=== PATIENT | female | born 1985 | race Caucasian/White ===

== ENCOUNTER 2018-03-29 15:16 | Outpatient (CLI) | payer MEDICAID, SELFPAY ==
--- NOTE | 2018-03-29 14:46 | DI.RAD_ITS ---
SYMPTOM/DIAGNOSIS: W/P FHR AT FIRST OB, VIABILITY OB ULTRASOUND: Comparison is made with 09 February 2018. There is a single active intrauterine gestation in variable position. The biometric measurements correspond to 14 weeks 2 days and an EDC of 25 September 2018. It is consistent with dating from previous ultrasound. Cardiac activity is demonstrated at 157 BPM. The amount of amniotic fluid appears normal. The ovaries appear normal. IMPRESSION: Living intrauterine gestation of 14 weeks 2 days. Many abnormalities cannot be diagnosed. A normal exam does not exclude a congenital anomaly. Radiology No. [id number] LMP: Exam Date: 03/29/18 [facility] wks days on EDC ([facility]) 09/24/18 Confirmed: HISTORY: UNABLE TO OBTAIN PHT AT APPOINTMENT ---- PREDICTED GESTATIONAL AGE NUMBER 14 +3 weeks with a range of 13 +3 week to 15 +3 weeks. 1 Determined by_XX__1STUS___LMP___HISTORY Info. pertaining to fetus # PLACENTA PRESENTATION Grade Cephalic___ Anterior___Posterior___ Breech____ Right Left Transverse(head right___ Fundal___Low-lying___Previa___ Transverse(head left___ Varying___XX___ BIOMETRY AMNIOTIC FLUID BPD: 24 mm 14 +1 weeks Normal HC: 91 mm 14 +1 weeks AC: 82 mm 14 +4 weeks FL: 14 mm 14 - weeks AMNIOTIC FLUID INDEX >26 WK CRL: mm weeks Cisterna Magna: mm CI: 85 RUQ: LUQ Cerebellum: cm EFW: grams Percentile RLQ: LLQ Total: cms Composite AGE= 14 +2 wks EDC by US__09/25/18 BIOPHYSICAL PROFILE ANATOMY IDENTIFIED SCORE 0/2 Heart: 4-Chamber___Rate:BPM__157 BPM___ LVOT: RVOT: Amniotic Fluid(>2cms)____ Stomach: Kidneys: Respirations (>30 secs) Bladder: Post. Fossa: Body Flex/Extension 3 vessel cord: Ventricles: cord insertion: Lips:____ Extremity Flex/Extension spinal morphology: Nose: Total Score= Palate: NS=not seen
== END 2018-03-29 15:36 ==
PROVIDERS: PCP Neuromusculoskeletal Medicine & OMM; Visit Provider Advanced Practice Midwife
DX: Z34.92 Encounter for supervision of normal pregnancy, unspecified, second trimester (principal); Z36.2 Encounter for other antenatal screening follow-up
CPT/HCPCS: 87491; 87591; 88142; 76801

== ENCOUNTER 2018-03-29 16:12 | Outpatient (REF) | payer MEDICAID, SELFPAY ==
--- NOTE | 2018-03-29 14:20 | PAPFT_PTH ---
PATIENT: Deidre Harkins LOC: [facility] U#:[id number] AGE/SX: 33/F ROOM: RE03/29/[address]: Art Michael RN : 1985 BED: DIS: 03/29/2018 SPEC #: [id number] RECD: 03/29/18 18:51 STATUS: TEJAL REQ #: [id number] GWEN: 03/29/18 14:[address]: Art Michael DEPT: [facility] Cytology RECD BY: Kathy Goode ENTERED: 03/29/18 18:51 SP TYPE: PAPFT OTHR DR: Ashu Hills Tissues: 1 - CX/ENDOCX FOR PAP SMEARS Procedures: PAP THIN PREP/UVM Screening HPV DNA PROBE Comments: [id number]
== END 2018-03-29 16:32 ==
LOC: LBN 16:12
PROVIDERS: PCP Neuromusculoskeletal Medicine & OMM; Visit Provider Advanced Practice Midwife
DX: Z12.4 Encounter for screening for malignant neoplasm of cervix (principal)
CPT/HCPCS: 88142; 87624

== ENCOUNTER 2018-03-29 16:56 | Outpatient (REF) | payer MEDICAID, SELFPAY ==
[2018-03-31 14:19] LABS: Chlamydia Result Negative; GC Result Negative; Specimen Description CERVICAL
== END 2018-03-29 17:16 ==
LOC: LBN 16:56
PROVIDERS: PCP Neuromusculoskeletal Medicine & OMM; Visit Provider Advanced Practice Midwife
DX: Z34.91 Encounter for supervision of normal pregnancy, unspecified, first trimester (principal); Z11.3 Encounter for screening for infections with a predominantly sexual mode of transmission; Z12.4 Encounter for screening for malignant neoplasm of cervix
CPT/HCPCS: 87491; 87591; 88142; 76801

== ENCOUNTER 2018-04-09 13:13 | Outpatient (CLI) | payer MEDICAID, SELFPAY ==
--- NOTE | 2018-04-09 11:38 | DI.US_ITS ---
SYMPTOMS/DIAGNOSIS: BLEEDING, ? RETROPLACENTAL CLOT OB ULTRASOUND: Routine examination. There is a single living intrauterine gestation. The estimated sonographic age is 15 weeks 6 days. The fetus is in the breech position. The heart rate is 153 bpm. Estimated weight is 133 grams. The placenta is posterior without evidence of previa. No evidence of a placental abruption is seen. The amniotic fluid is within normal limits. IMPRESSION: Single living intrauterine gestation. Estimated sonographic age is 15 weeks 6 days. Many abnormalities cannot be diagnosed. A normal exam does not exclude a congenital anomaly. Radiology No. [id number] LMP: Exam Date: [facility] wks days on EDC ([facility]) 09/24/18 Confirmed: HISTORY: bleeding, ? retroplacental clot ---- PREDICTED GESTATIONAL AGE NUMBER 16 weeks with a range of 15 weeks to 17 weeks. 1 Determined by 1STUS X LMP___HISTORY Info. pertaining to fetus # PLACENTA PRESENTATION Grade 0-I Cephalic___ Anterior___Posterior X Breech X Right Left Transverse(head right___ Fundal___Low-lying___Previa___ Transverse(head left___ Varying BIOMETRY AMNIOTIC FLUID BPD: 32 mm 15+6 weeks Normal HC: 118 mm 15+6 weeks AC: 99 mm 16 weeks FL: 18 mm 15+3 weeks AMNIOTIC FLUID INDEX >26 WK CRL: mm weeks Cisterna Magna: mm CI: RUQ: LUQ Cerebellum: cm EFW: 133 grams Percentile 24% RLQ: LLQ Total: cms Composite AGE= 15+6 wks EDC by US 09/25/18 BIOPHYSICAL PROFILE ANATOMY IDENTIFIED SCORE 0/2 Heart: 4-Chamber___Rate: 153 BPM LVOT: RVOT: Amniotic Fluid(>2cms)____ Stomach: Kidneys: Respirations (>30 secs) Bladder: Post. Fossa: Body Flex/Extension 3 vessel cord: Ventricles: cord insertion: Lips:____ Extremity Flex/Extension spinal morphology: Nose: Total Score= Palate: NS=not seen
[2018-04-09 13:21] LABS: Abs Immature Grans 0.01 k/cumm (0.0-0.09); Absolute Basophil Count 0.01 k/cumm (0.0-0.2); Absolute Lymphocyte Count 1.92 k/cumm (1.2-3.4); Absolute Monocyte Count 0.48 k/cumm (0.11-0.7); Absolute Neutrophil Count 5.25 k/cumm (1.2-6.7); Basophils % 0.1; Eosinophils % 1.3; HCT 33.5 % (36.0-46.0); HGB 11.2 g/dL (12.0-15.5); Immature Grans % 0.1; Lymphocytes % 24.7; Mean Corp. HGB Concentration 33.4 g/dL (32.0-36.0); Mean Corpuscular Volume 89.8 fL (80-95); Mean Platelet Volume 10.1 fL (8.0-11.0); Monocytes % 6.2; Neutrophils % 67.6; Platelet Count 258 x1000/uL (130-400); RBC 3.73 m/cumm (4.00-5.20); RBC Distribution Width 12.2 % (11.7-14.6); White Blood Cell Count 7.77 k/cumm (4.4-10.8)
[2018-04-09 14:16] LABS: TSH (W/Ref FT4) 0.87 uIU/mL (0.358-3.74)
[2018-04-12 12:54] LABS: Rubella IgG Ab (UVM) Negative
[2018-04-12 12:58] LABS: Varicella IgG Antibody Positive
[2018-04-12 13:10] LABS: HIV-1/2 Ag & Ab Screen Negative (NEGAT)
[2018-04-12 13:22] LABS: Hepatitis B Surface Ag Negative (NEGAT)
[2018-04-12 13:25] LABS: Hepatitis C Ab w Rflx HCV PCR Negative (NEGAT)
[2018-04-12 14:09] LABS: Syphilis Serology (RPR) Negative (Negative)
== END 2018-04-09 13:33 ==
PROVIDERS: PCP Neuromusculoskeletal Medicine & OMM; Visit Provider Advanced Practice Midwife
DX: Z34.91 Encounter for supervision of normal pregnancy, unspecified, first trimester (principal); N93.0 Postcoital and contact bleeding; O09.892 Supervision of other high risk pregnancies, second trimester; Z67.91 Unspecified blood type, Rh negative
CPT/HCPCS: 36415; 80055; 86787; 86850; 86900; 86901; 90384; 76801; 84443

== ENCOUNTER 2018-04-27 14:24 | Outpatient (CLI) | payer MEDICAID, SELFPAY ==
--- NOTE | 2018-04-27 12:57 | DI.US_ITS ---
SYMPTOMS/DIAGNOSIS: SUPERVISION OF NORMAL , Z34.90 OBSTETRICAL ULTRASOUND: Many abnormalities cannot be diagnosed. A normal exam does not exclude a congenital anomaly. Radiology No. [id number] LMP: Exam Date: 04/27/18 [facility] wks days on EDC ([facility]) 09/24/18 Confirmed: HISTORY: ---- PREDICTED GESTATIONAL AGE NUMBER 18+4 weeks with a range of 17+4 weeks to 19+4 weeks. 1 Determined by___1STUS___LMP___HISTORY PLACENTA PRESENTATION Grade I Cephalic___ Anterior___Posterior_X__ Breech____ Right Left Transverse(head right___ Fundal___Low-lying___Previa___ Transverse(head left___ Varying___X___ BIOMETRY AMNIOTIC FLUID BPD: 41 mm 18+4 weeks Normal HC: 155 mm 18+3 weeks Oligo Polyhydramnios AC: 135 mm 18+6 weeks FL: 28 mm 18+3 weeks AMNIOTIC FLUID INDEX >26 WK CRL: mm weeks Cisterna Magna: 3 mm CI: 85 RUQ: LUQ Cerebellum: 1.7 cm EFW: 251 grams Percentile RLQ: LLQ Total: cms Composite AGE= 18+4 wks EDC by US: 09/24/18 BIOPHYSICAL PROFILE ANATOMY IDENTIFIED SCORE 0/2 Heart: 4-Chamber_X__Rate:BPM 153 LVOT: X RVOT:___X Amniotic Fluid(>2cms)____ Stomach:___X____ Kidneys:___X____ Respirations (>30 secs) Bladder:____X____ Post. Fossa:___X Body Flex/Extension 3-vessel cord:___X____Ventricles:___X Cord insertion:__X___ Lips:_X___ Extremity Flex/Extension Spinal morphology:__X Nose:_X___ Total Score= Palate:___X____ NS=not seen COMMENTS: There is a single living intrauterine gestation. Estimated sonographic age is 18 weeks 4 days. No or placental abnormalities are identified. The fetus was in varying positions during the examination. heart rate is 153 beats per minute. Placenta is posterior without evidence of previa. IMPRESSION: Single living intrauterine gestation. Estimated sonographic age is 18 weeks 4 days.
== END 2018-04-27 14:44 ==
PROVIDERS: PCP Neuromusculoskeletal Medicine & OMM; Visit Provider Advanced Practice Midwife
DX: Z34.92 Encounter for supervision of normal pregnancy, unspecified, second trimester (principal)
CPT/HCPCS: 76805

== ENCOUNTER 2018-05-24 15:53 | Outpatient (REF) | payer MEDICAID, SELFPAY ==
[2018-05-24 18:05] LABS: *AMPHETAMINES SCREEN URINE Negative (Negative); *BARBITURATES SCREEN URINE Negative (Negative); *BENZODIAZEPINES SCREEN URINE Negative (Negative); Cannabinoids THC Negative (Negative); Cocaine Screen,Urine Negative (Negative); METHADONE URINE SCREEN Negative (Negative); OPIATES URINE SCREEN Negative (Negative)
[2018-05-24 18:06] LABS: Tricyclic Antidepressants Negative (Negative)
== END 2018-05-24 16:13 ==
LOC: LBN 15:53
PROVIDERS: PCP Neuromusculoskeletal Medicine & OMM; Visit Provider Nurse Practitioner
DX: Z34.91 Encounter for supervision of normal pregnancy, unspecified, first trimester (principal)
CPT/HCPCS: 80307; 87077; 87086; 87186

== ENCOUNTER 2018-07-19 12:13 | Outpatient (CLI) | payer MEDICAID, SELFPAY | END 2018-07-19 21:00 | LOC: BCD 14:34 → OBS 16:24 → BCD 20:28 | PROVIDERS: PCP Neuromusculoskeletal Medicine & OMM; Visit Provider Advanced Practice Midwife | DX: O9A.213 Injury, poisoning and certain other consequences of external causes complicating pregnancy, third trimester (principal); W19.XXXA Unspecified fall, initial encounter; Z3A.28 28 weeks gestation of pregnancy | CPT/HCPCS: 86850; 90384; 59025 ==

== ENCOUNTER 2018-07-21 14:31 | Outpatient (CLI) | payer MEDICAID, SELFPAY ==
--- NOTE | 2018-07-21 13:52 | DI.US_ITS ---
SYMPTOMS/DIAGNOSIS: S/P FALL 3 DAYS AGO, SPOTTING AFTER BUT NOT LONGER SPOTTING, CHECK PLACENTA OB ULTRASOUND: Many abnormalities cannot be diagnosed. A normal exam does not exclude a congenital anomaly. Radiology No. [id number] LMP: Exam Date: 07/21/18 [facility] wks days on EDC ([facility]) Confirmed: HISTORY: PREDICTED GESTATIONAL AGE NUMBER weeks with a range of week to weeks. 1 Determined by___1STUS___LMP___HISTORY PLACENTA PRESENTATION Grade I-II Cephalic_X__ Anterior___Posterior_X__ Breech____ Right Left Transverse(head right___ Fundal_X__Low-lying___Previa___ Transverse(head left___ Varying BIOMETRY AMNIOTIC FLUID BPD: mm weeks Normal HC: mm weeks AC: mm weeks FL: mm weeks AMNIOTIC FLUID INDEX >26 WK CRL: mm weeks Cisterna Magna: mm CI: RUQ: LUQ Cerebellum: cm EFW: grams Percentile RLQ: LLQ Total: cms Composite AGE= wks EDC by US BIOPHYSICAL PROFILE ANATOMY IDENTIFIED SCORE 0/2 Heart: 4-Chamber_X__Rate:BPM 117 LVOT: RVOT: Amniotic Fluid(>2cms)____ Stomach: Kidneys: Respirations (>30 secs) Bladder:___X Post. Fossa: Body Flex/Extension 3-vessel cord:___X____Ventricles: cord insertion: Lips:____ Extremity Flex/Extension spinal morphology: Nose: Total Score= Palate: NS=not seen COMMENTS: The fetus is in cephalic position. The cervix appears intact. The placenta is posterior. There is no evidence of placenta previa or abruption. Amount of amniotic fluid appears normal. cardiac activity is identified at 117 beats per minute. IMPRESSION: Posterior placenta which appears intact.
[2018-07-21 15:04] LABS: HCT 32.9 % (36.0-46.0); HGB 10.9 g/dL (12.0-15.5); Mean Corp. HGB Concentration 33.1 g/dL (32.0-36.0); Mean Corpuscular Hemoglobin 29.2 pg (27.0-33.0); Mean Corpuscular Volume 88.2 fL (80-95); Mean Platelet Volume 10.1 fL (8.0-11.0); Platelet Count 248 x1000/uL (130-400); RBC 3.73 m/cumm (4.00-5.20); RBC Distribution Width 13.3 % (11.7-14.6); White Blood Cell Count 9.44 k/cumm (4.4-10.8)
[2018-07-21 15:34] LABS: Glucose,1 Hr (Glucola) 70 mg/dL (80-140)
== END 2018-07-21 14:51 ==
PROVIDERS: Advanced Practice Midwife; PCP Neuromusculoskeletal Medicine & OMM; Visit Provider Advanced Practice Midwife
DX: O26.853 Spotting complicating pregnancy, third trimester (principal); Z91.81 History of falling; Z34.93 Encounter for supervision of normal pregnancy, unspecified, third trimester
CPT/HCPCS: 36415; 76815; 82950; 85027

== ENCOUNTER 2018-08-31 17:01 | Outpatient (REF) | payer MEDICAID, SELFPAY | END 2018-08-31 17:21 | LOC: LBN 17:01 | PROVIDERS: PCP Neuromusculoskeletal Medicine & OMM; Visit Provider Advanced Practice Midwife | DX: Z34.93 Encounter for supervision of normal pregnancy, unspecified, third trimester (principal); Z36.85 Encounter for antenatal screening for Streptococcus B | CPT/HCPCS: 87081 ==

== ENCOUNTER 2018-09-15 11:33 | Outpatient (CLI) | payer MEDICAID, SELFPAY ==
--- NOTE | 2018-09-15 11:30 | DI.US_ITS ---
SYMPTOMS/DIAGNOSIS: SIZE LESS THAN DATES, FUNDAL HEIGHT 34 CM, EGA 37 WKS, Z34.90 OB ULTRASOUND: There is a single living intrauterine gestation. The fetus is in the cephalic presentation. heart rate is 148 bpm. The estimated weight is 3328 grams which is the 48th percentile. anatomic evaluation was not performed at this time. The amniotic fluid index is 15.6 cm. Visually the amniotic fluid appears within normal limits. The placenta is posterior without evidence of previa. IMPRESSION: Single living intrauterine gestation. Estimated sonographic age is 38 weeks. Many abnormalities cannot be diagnosed. A normal exam does not exclude a congenital anomaly. Radiology No. [id number] LMP: Exam Date: 09/15/18 [facility] wks days on [facility] ([facility]) Confirmed: HISTORY: S < D x 3 wks PREDICTED GESTATIONAL AGE NUMBER 38+4 weeks with a range of 37+4 weeks to 39+4 weeks. 1 Determined by 1STUS X LMP___ HISTORY X Info. pertaining to fetus # PLACENTA PRESENTATION Grade II Cephalic X Anterior___Posterior X Breech____ Right Left Transverse(head right___ Fundal___Low-lying___Previa___ Transverse(head left___ Varying BIOMETRY AMNIOTIC FLUID BPD: 94 mm 38+1 weeks Normal HC: 333 mm 38 weeks AC: 338 mm 37+5 weeks FL: 74 mm 37+6 weeks AMNIOTIC FLUID INDEX >26 WK CRL: mm weeks Cisterna Magna: mm CI: 83 RUQ: 3.5 LUQ: 3.9 Cerebellum: cm EFW: 3328 grams Percentile 48% RLQ: 3.4 LLQ: 4.7 7# 5oz Total: 15.6 cms Composite AGE= 38 wks EDC by US 09/29/18 BIOPHYSICAL PROFILE ANATOMY IDENTIFIED SCORE 0/2 Heart: 4-Chamber___Rate: 148 BPM LVOT: RVOT: Amniotic Fluid(>2cms)____ Stomach: Kidneys: Respirations (>30 secs) Bladder: Post. Fossa: Body Flex/Extension 3 vessel cord: Ventricles: cord insertion: Lips:____ Extremity Flex/Extension spinal morphology: Nose: Total Score= Palate: NS=not seen
== END 2018-09-15 11:53 ==
PROVIDERS: PCP Neuromusculoskeletal Medicine & OMM; Visit Provider Obstetrics & Gynecology Gynecology
DX: O26.843 Uterine size-date discrepancy, third trimester (principal); Z34.93 Encounter for supervision of normal pregnancy, unspecified, third trimester
CPT/HCPCS: 76816

== ENCOUNTER 2018-09-26 08:05 | Inpatient (IN) | payer MEDICAID, SELFPAY ==
[2018-09-26] MEDS: Oxytocin 10 UNITS/ML VIAL IM (08:30)
[2018-09-26 09:37] LABS: HCT 37.4 % (36.0-46.0); HGB 12.9 g/dL (12.0-15.5); Mean Corp. HGB Concentration 34.5 g/dL (32.0-36.0); Mean Corpuscular Hemoglobin 29.4 pg (27.0-33.0); Mean Corpuscular Volume 85.2 fL (80-95); Mean Platelet Volume 10.7 fL (8.0-11.0); Platelet Count 199 x1000/uL (130-400); RBC 4.39 m/cumm (4.00-5.20); RBC Distribution Width 14.5 % (11.7-14.6); White Blood Cell Count 14.92 k/cumm (4.4-10.8)
[2018-09-26] MEDS: Ibuprofen 600 MG TAB PO ×2 (11:12→21:25)
[2018-09-26] MEDS: Buprenorphine/Naloxone 8 mg/2 mg FILM 1 EACH SL (11:13)
[2018-09-26] MEDS: Buprenorphine/Naloxone 12 mg/3 mg FILM 1 EACH SL (11:13)
[2018-09-26] MEDS: Gabapentin 400 MG CAP PO ×2 (17:48→23:00)
[2018-09-27 07:31] LABS: HCT 31.9 % (36.0-46.0); HGB 10.6 g/dL (12.0-15.5); Mean Corp. HGB Concentration 33.2 g/dL (32.0-36.0); Mean Corpuscular Volume 87.4 fL (80-95); Platelet Count 162 x1000/uL (130-400); RBC 3.65 m/cumm (4.00-5.20); RBC Distribution Width 14.7 % (11.7-14.6); White Blood Cell Count 10.92 k/cumm (4.4-10.8)
[2018-09-27] MEDS: Gabapentin 400 MG CAP PO ×3 (08:14→20:27)
[2018-09-27] MEDS: Prenatal Multivitamin w/CA,FE TAB 1 TAB PO (08:14)
[2018-09-27] MEDS: Buprenorphine/Naloxone 8 mg/2 mg FILM 1 EACH SL (08:15)
[2018-09-27] MEDS: Buprenorphine/Naloxone 12 mg/3 mg FILM 1 EACH SL (08:15)
[2018-09-27] MEDS: Acetaminophen 325 MG TAB 650 MG PO ×2 (15:01→20:27)
[2018-09-27 16:15] LABS: HCT 31.2 % (36.0-46.0); HGB 10.3 g/dL (12.0-15.5); Mean Corpuscular Volume 87.9 fL (80-95); Mean Platelet Volume 10.7 fL (8.0-11.0); Platelet Count 149 x1000/uL (130-400); RBC 3.55 m/cumm (4.00-5.20); RBC Distribution Width 14.8 % (11.7-14.6); White Blood Cell Count 12.09 k/cumm (4.4-10.8)
[2018-09-27] MEDS: Ibuprofen 600 MG TAB PO (20:27)
[2018-09-28] MEDS: Acetaminophen 325 MG TAB 650 MG PO (06:36)
[2018-09-28] MEDS: Ibuprofen 600 MG TAB PO (06:37)
[2018-09-28] MEDS: Prenatal Multivitamin w/CA,FE TAB 1 TAB PO (08:10)
[2018-09-28] MEDS: Buprenorphine/Naloxone 12 mg/3 mg FILM 1 EACH SL (08:10)
[2018-09-28] MEDS: Gabapentin 400 MG CAP PO (08:10)
[2018-09-28] MEDS: Buprenorphine/Naloxone 8 mg/2 mg FILM 1 EACH SL (10:38)
== END 2018-09-28 12:17 | disposition home or self-care (01) | DRG 806 ==
PROVIDERS: Admitting Provider Advanced Practice Midwife; PCP Neuromusculoskeletal Medicine & OMM; Visit Provider Advanced Practice Midwife
DX: O48.0 Post-term pregnancy (principal); O99.324 Drug use complicating childbirth; Z37.0 Single live birth; F11.20 Opioid dependence, uncomplicated; O69.1XX0 Labor and delivery complicated by cord around neck, with compression, not applicable or unspecified; O92.03 Retracted nipple associated with lactation; O34.211 Maternal care for low transverse scar from previous cesarean delivery; O26.893 Other specified pregnancy related conditions, third trimester; O99.02 Anemia complicating childbirth; O99.344 Other mental disorders complicating childbirth; Z3A.40 40 weeks gestation of pregnancy; F41.8 Other specified anxiety disorders; D64.9 Anemia, unspecified
CPT/HCPCS: 36415; 85027; 85461; 86850; 86900; 86901; 90384; J2790

== ENCOUNTER 2018-11-25 11:12 | Emergency (ER) | payer MEDICAID, SELFPAY ==
[2018-11-25 11:51] VITALS: BP 132/70; PULSE 100; RESP 18; TEMP 36.7; O2SAT 96
[2018-11-25 12:29] LABS: Bilirubin Negative (Negative); Blood Negative (Negative); Clarity Clear; Glucose Negative (Negative); Ketones Negative (Negative); Leukocyte Esterase Negative (Negative); Nitrite Negative (Negative); Specific Gravity 1.015 (1.005-1.025); Urobilinogen 0.2 EU/dL (Up TO 0.2); pH 7.5 (5-8)
[2018-11-25 12:51] LABS: Absolute Basophil Count 0.01 k/cumm (0.0-0.2); Absolute Eosinophil Count 0.11 k/cumm (0.0-0.7); Absolute Lymphocyte Count 2.76 k/cumm (1.2-3.4); Absolute Monocyte Count 0.66 k/cumm (0.11-0.7); Absolute Neutrophil Count 4.45 k/cumm (1.2-6.7); Basophils % 0.1; Eosinophils % 1.4; HCT 39.5 % (36.0-46.0); Lymphocytes % 34.5; Mean Corp. HGB Concentration 32.9 g/dL (32.0-36.0); Mean Corpuscular Volume 85.1 fL (80-95); Mean Platelet Volume 9.2 fL (8.0-11.0); Monocytes % 8.3; Neutrophils % 55.7; Platelet Count 372 x1000/uL (130-400); RBC 4.64 m/cumm (4.00-5.20); RBC Distribution Width 14.2 % (11.7-14.6); White Blood Cell Count 7.99 k/cumm (4.4-10.8)
[2018-11-25 13:04] LABS: ALT 45 U/L (12-78); AST 16 U/L (15-37); Albumin 3.8 g/dL (3.4-5.0); Alkaline Phosphatase 95 U/L (46-116); Anion Gap 8.1 mmol/L (3-11); BUN 7 mg/dL (7-18); Bilirubin, Total 0.5 mg/dL (0.2-1.0); CO2 27.9 mmol/L (21.0-32.0); CREATININE 0.46 mg/dL (0.55-1.02); Calcium 9.4 mg/dL (8.5-10.1); Chloride 101 mmol/L (98-107); Glucose 103 mg/dL (70-100); Sodium 137 mmol/L (136-145); Total Protein 7.8 g/dL (6.4-8.2)
--- NOTE | 2018-11-25 14:22 | ED.GENADUL_ITS ---
Discharge Plan Disposition Patient Disposition: HOME Condition: Stable Discharge Details Chief Complaint: Cellulitis Clinical Impression: Anxiety, Pain of left breast Primary Care Provider: Ashu Hills ED Provider: Frantz Mast Home Meds and New Rx's Prescriptions: Continued folic acid 1 mg tablet 1 mg PO DAILY RF: 0 buprenorphine HCl 8 mg tablet, sublingual 20 mg SL DAILY RF: 0 PNV cmb#95-ferrous fumarate-FA [] 1 EACH tablet 1 ea PO RF: 0 gabapentin 400 mg capsule 400 mg PO QID Qty: 16 RF: 0 No Action metoclopramide HCl [Reglan] 10 mg tablet 10 mg PO Q6H Qty: 60 RF: 0 Discharge Instructions Instructions: and Nipple Soreness (ED), and Breast Engorgement (ED), Anxiety (ED) Additional Instructions: [facility] with [facility] for further assessment of your condition. Feel free to return the emergency department at any point for any further concerns or needs you may have or any worsening of your condition. You may continue to use [id number] acetaminophen as needed for discomfort and take your normally prescribed medications. Referrals: [facility] [Provider Group] - 11/26/18 10:40 am Discharge Data Discharge Date/Time-TO BE ENTERED AT DEPARTURE: 11/25/18 14:35 Medical Decision Making Patient presenting the emergency department for chief complaint of left breast pain. Patient states this is been going on for last 2 weeks after she accidentally left her breast pump on her breast for 3 hours. She states that there was what she thought was breast tissue noted in the mechanisms of the container. Also since her child is both been born she has had night sweats, back pain, and some sore throat. Physical exam shows a very small area of erythema to the left breast that is consistent with a potential clogged duct but no palpable abscess, no induration, no discharge, no signs of mastitis. Of note is right nipple is inverted which she states is normal for her. Examination of the back and lower extremities shows no acute findings, throat is mildly erythematous with exudates. Plan on checking labs, rapid strep test, and consulting with security sales consultant. Review of labs show normal CBC, nondiagnostic CMP, contaminated urine and negative strep test. media sales consultant is out of the office so I did speak with Dr. Medley AGRICULTURAL AND FORESTRY SUPERVISOR on-call. She recommended patient have close follow-up with them and was able to arrange the patient to be seen in the office tomorrow. Patient was agreeable to this. Otherwise I see no signs of emergent medical condition at this time but return precautions were discussed with patient. After discussion of diagnosis and plan of care patient has no further needs, questions, or concerns and states clear understanding to return to the emergency department for any worsening symptoms. HPI General Mode of arrival: ambulatory . Date/Time Provider Initiated Documentation: 11/25/18 11:53 . Limitations to Documentation: no limitations . Information obtained by: patient . History of Present Illness 33 year old F presents to the emergency department with the chief complaint of Left breast disc, Patient started experiencing this week(s) (2) Related Data Home Medications Medication Instructions Recorded Confirmed PNV cmb#95-ferrous fumarate-FA 1 ea PO 01/19/18 11/26/18 [] folic acid 1 mg tablet 1 mg PO DAILY 06/22/18 11/26/18 buprenorphine HCl 8 mg sublingual 20 mg SL DAILY tab 09/15/18 11/26/18 tablet gabapentin 400 mg capsule 400 mg PO QID #16 cap 09/28/18 11/26/18 metoclopramide 10 mg tablet 10 mg PO Q6H #60 tab 11/26/18 11/26/18 Previous Rx's Medication Instructions Recorded gabapentin 400 mg capsule 400 mg PO QID #16 cap 09/28/18 metoclopramide 10 mg tablet 10 mg PO Q6H #60 tab 11/26/18 Allergies Allergy/AdvReac Type Severity Reaction Status Date / Time No Known Drug Allergies Allergy Unverified 11/26/18 11:01 General Stated Complaint: GenMedical JEROMY: 3 Review of Systems Constitutional Reports chills, Denies fever(s) and Reports night sweats ENT Denies nasal congestion, Denies neck pain and Reports sore throat Cardiovascular Denies chest pain and Denies dyspnea Respiratory Denies cough, Denies hemoptysis and Denies dyspnea Musculoskeletal Reports back pain and Denies neck pain Integumentary/Breasts Reports as per HPI, Reports breast pain, Denies erythema and Denies rash PFSH Medical History Rh negative state in antepartum period (Acute) Depression (Chronic) Anxiety (Chronic) Restless leg syndrome (Acute) 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) Surgical History section (07/14/08) Family History Father Essential hypertension Hyperlipidemia Mother Fibromyalgia Social History Smoking/Tobacco Use Status: Current every day Drug use: Never Household members: other Details: children: Jeanmarie Terrazas Orion Do you feel safe at home: Yes Do you feel safe in your relationship?: Yes Female Reproductive History Menstrual Age of Menarche: 13 Duration of menses: 3-5 days control method: none History History 7 Para Hx # Term Pregnancies 3 Multiple births 0 Hx # Pregnancies 0 Ectopic pregnancies 0 AB induced Hx Number of Living Children AB spontaneous Past Pregnancies Del. Date GA/Weeks # Outcome Route Wgt Sex Labor Lgth Anesthesia Location Prov Complic Unknown Unsuccessful Unknown Unsuccessful 07/14/08 40 No Successful EP other 07/06/13 No vaginal Male CNM 12/26/14 No Successful Female 9 hrs CNM 09/26/18 40 No Successful vaginal 3.005 kg Male Jodi Garcia CNM Delivery Date: 09/26/18 On 11/08/18 @ 14:28 Erika Morse Pecipitous delivery, Arrived in active labor, SROM clear fluid within 15 minutes of arrival and head seen on perineum. Controlled delivery with snug nuchal cord,. Delivery Date: 12/26/14 No notes to display Delivery Date: 07/06/13 On 08/31/18 @ 16:50 Radha Lamar , retained placenta - removed under anesthesia Delivery Date: 07/14/08 On 08/31/18 @ 16:47 Radha Lamar arrest of descent Delivery Date: On 08/31/18 @ 16:53 Radha Lamar SAB Delivery Date: On 08/31/18 @ 16:48 Radha Lamar SAB Exam Const General: cooperative, no acute distress and not ill appearing Orientation: alert, awake and oriented x3 HENMT Head: normal to inspection Ears: hearing grossly normal bilaterally, external ears normal and TM's normal bilaterally General nose exam: external nose normal Mouth: oral mucosae normal, lip normal, tongue normal and moist mucous membranes Throat: posterior oropharynx normal, uvula midline and abnormal tonsil bilaterally erythema and exudates Chest Breast inspection: normal inspection of the axillae and abnormal inspection of the breast (Inverted nipple of the right breast, 6 mm erythema 11 o'clock left nipple ) Breast palpation: normal palpation of the breasts, normal palpation of the axillae and no axillary lymphadenopathy Resp Effort & Inspection: normal respiratory effort, able to speak in complete sentences and no respiratory distress Auscultation: clear to auscultation bilaterally Cardio Rate: regular rate Rhythm: regular rhythm Back/Spine/Pelvis Cervical Spine: No cervical spinal tenderness Thoracic/Lumbar Spine: thoraco-lumbar ROM normal, No pain with thoraco-lumbar ROM, No paraspinal tenderness, No thoracic spinal tenderness and No lumbar spinal tenderness Skin General skin exam: no rashes or lesions noted Neuro General: alert, awake, oriented x3, moves all extremities and no focal motor deficits Sensory Exam: no sensory deficits noted Course Vital Signs Temperature 36.7 C 11/25/18 11:51 Pulse 100 H 11/25/18 11:51 Respiratory Rate 18 11/25/18 11:51 Blood Pressure 132/70 11/25/18 11:51 Pulse Oximetry 96 11/25/18 11:51 Temperature 36.7 C 11/25/18 11:51 Temperature Source Skin 11/25/18 11:51 Pulse 100 H 11/25/18 11:51 Respiratory Rate 18 11/25/18 11:51 Respiratory Effort Non-Labored 11/25/18 11:59 Blood Pressure 132/70 11/25/18 11:51 Pulse Oximetry 96 11/25/18 11:51 Oxygen Delivery Method Room Air 11/25/18 11:51 Oxygen Flow Rate 0 11/25/18 11:51 Pain Level 5 11/25/18 11:51 Lab/Test Results Lab/Test Results: 11/25/18 13:50 Pharynx Streptococcus Screen (KESHA) - Pending Laboratory Tests Range/Units 05/09/19 05/09/19 05/09/19 12:25 12:44 12:44 WBC (4.4-10.8) k/cumm 7.99 RBC (4.00-5.20) m/cumm 4.64 Hgb (12.0-15.5) g/dL 13.0 Hct (36.0-46.0) % 39.5 MCV (80-95) fL 85.1 MCH (27.0-33.0) pg 28.0 MCHC (32.0-36.0) g/dL 32.9 RDW (11.7-14.6) % 14.2 Plt Count (130-400) x1000/uL 372 MPV (8.0-11.0) fL 9.2 Immature Gran % 0.0 Neutrophils % 55.7 Lymphocytes % 34.5 Monocytes % 8.3 Eosinophils % 1.4 Basophils % 0.1 Absolute Neutrophils (1.2-6.7) k/cumm 4.45 Absolute Lymphocytes (1.2-3.4) k/cumm 2.76 Absolute Monocytes (0.11-0.7) k/cumm 0.66 Absolute Eosinophils (0.0-0.7) k/cumm 0.11 Absolute Basophils (0.0-0.2) k/cumm 0.01 Sodium (136-145) mmol/L 137 Potassium (3.5-5.1) mmol/L 4.0 Chloride (98-107) mmol/L 101 Carbon Dioxide (21.0-32.0) mmol/L 27.9 Anion Gap (3-11) mmol/L 8.1 BUN (7-18) mg/dL 7 Creatinine (0.55-1.02) mg/dL 0.46 L Estimated GFR/1.73 m2 (mL/min/1.73m2) >= 60.00 Glucose (70-100) mg/dL 103 H Calcium (8.5-10.1) mg/dL 9.4 Total Bilirubin (0.2-1.0) mg/dL 0.5 AST (15-37) U/L 16 ALT (12-78) U/L 45 Alkaline Phosphatase (46-116) U/L 95 Total Protein (6.4-8.2) g/dL 7.8 Albumin (3.4-5.0) g/dL 3.8 Urine Color (Yellow) Yellow Urine Clarity Clear Urine pH (5-8) 7.5 Ur Specific Pollock (1.005-1.025) 1.015 Urine Protein (Negative) mg/dL Negative Urine Ketones (Negative) mg/dL Negative Urine Blood (Negative) Negative Urine Nitrite (Negative) Negative Urine Bilirubin (Negative) Negative Urine Urobilinogen (Up TO 0.2) EU/dL 0.2 Ur Leukocyte Esterase (Negative) Negative Urine Glucose (Negative) mg/dL Negative POC Strep Test-FRANCISCO(Rapid) Start: 11/25/18 12:36 Freq: .Rapid Strep Test Status: Active Protocol: Document 11/25/18 13:59 SGL (Rec: 11/25/18 13:59 SGL ER10) Strep test-FRANCISCO(Rapid)-POC POC-Strep test-FRANCISCO (Rapid) Negative POC-Strep test-FRANCISCO (Rapid) Negative
== END 2018-11-25 14:35 | disposition home or self-care (01) ==
PROVIDERS: Emergency Provider Nurse Practitioner Family; PCP Neuromusculoskeletal Medicine & OMM
DX: F41.9 Anxiety disorder, unspecified (principal); N64.4 Mastodynia; J02.9 Acute pharyngitis, unspecified; M54.9 Dorsalgia, unspecified; R61 Generalized hyperhidrosis
CPT/HCPCS: 36415; 80053; 81025; 87880; 99283; 81003; 85025; 87081

== ENCOUNTER 2019-08-14 17:26 | Emergency (ER) | payer MEDICAID, SELFPAY ==
[2019-08-14 17:54] VITALS: BP 125/75; PULSE 98; RESP 15; TEMP 37; O2SAT 93
--- NOTE | 2019-08-14 18:58 | ED.GENADUL_ITS ---
Discharge Plan Disposition Patient Disposition: HOME Discharge Details Chief Complaint: Nk/Back Pain Clinical Impression: Chronic bilateral thoracic back pain, Muscle spasm Primary Care Provider: Ashu Hills ED Provider: Jeevan Hu Home Meds and New Rx's Prescriptions: New prednisone 20 mg tablet 40 mg PO BID 5 Days Qty: 20 RF: 0 cyclobenzaprine 10 mg tablet 10 mg PO HS 5 Days Qty: 5 RF: 0 No Action folic acid 1 mg tablet 1 mg PO DAILY RF: 0 buprenorphine HCl 8 mg tablet, sublingual 20 mg SL DAILY RF: 0 gabapentin 400 mg capsule 400 mg PO QID Qty: 16 RF: 0 ibuprofen [Advil] 200 mg Tablet 600 mg PO Q6H PRN PRNRF: 0 Discharge Instructions Instructions: Muscle Spasm (ED), Chronic Back Pain (ED) Additional Instructions: Most likely her symptoms are related to some form of an injury to your thoracic back. This is chronic and will most likely require ongoing therapy. Physical therapy is an excellent start to help provide pain relief. You must contact your primary care provider, particularly if your symptoms persist, to discuss further imaging such as an MRI. Take Tylenol and or ibuprofen for relief. Referrals: Ashu Hills [Primary Care Provider] - 3 days Discharge Data Discharge Date/Time-TO BE ENTERED AT DEPARTURE: 08/14/19 19:30 Medical Decision Making This is a nontoxic-appearing 34-year-old female who presents to the emergency department with acute on chronic mid back pain. No recent trauma. She is hemodynamically stable here in the emergency department. Initial oxygen saturation was 93%, however bedside pulse ox read 98% with excellent Plath. She denies any shortness of breath or chest pain. Her symptoms today are very similar to previous flares in the past. She denies any fevers. She has had some muscle spasms in her back that radiated into her right leg. No fecal or urinary incontinence. We discussed the ongoing nature of her symptoms and the likelihood that these will persist and continue to be chronic should she not continue with conservative and prescribed outpatient therapy. She is in the midst of seeing physical therapist for which I have urged her to keep. She will also most likely require MRI should her symptoms persist. I will provide a short prescription for prednisone 40 mg daily x5 days along with Flexeril for back spasms. Discussed supportive measures at home and the need to follow-up. HPI General Date/Time Provider Initiated Documentation: 08/14/19 18:00 . [facility] Narrative: Patient is a 34-year-old female who presents to the emergency department with acute on chronic mid back pain. Patient states that she has had back pain for several years, however has been worse the last 2 to 3 days. She denies any recent trauma. She denies any shortness of breath, chest pain, abdominal pain nausea or vomiting. No urinary symptoms. No hematuria. She denies any trauma. She does state that she has had some spasms in her mid back which radiate into her lower back. She also has some spasms in her right thigh which is been ongoing and chronic for her as well. She has been taking Advil 600 mg every 8 hours for pain with little to no relief. She has talked to her primary care a bout her symptoms and she is in the midst of seeing orthopedics along with physical therapy. She has not had any advanced imaging on her back Related Data Home Medications Medication Instructions Recorded Confirmed folic acid 1 mg tablet 1 mg PO DAILY 06/22/18 08/14/19 buprenorphine HCl 8 mg sublingual 20 mg SL DAILY tab 09/15/18 08/14/19 tablet gabapentin 400 mg capsule 400 mg PO QID #16 cap 09/28/18 08/14/19 cyclobenzaprine 10 mg PO HS 5 Days #5 tab 08/14/19 ibuprofen [Advil] 600 mg PO Q6H PRN PRN 08/14/19 08/14/19 prednisone 40 mg PO BID 5 Days #20 tab 08/14/19 Previous Rx's Medication Instructions Recorded gabapentin 400 mg capsule 400 mg PO QID #16 cap 09/28/18 cyclobenzaprine 10 mg PO HS 5 Days #5 tab 08/14/19 prednisone 40 mg PO BID 5 Days #20 tab 08/14/19 Allergies Allergy/AdvReac Type Severity Reaction Status Date / Time No Known Drug Allergies Allergy Unverified 08/14/19 18:00 General Stated Complaint: Nk/Back Pain JEROMY: 3 Review of Systems Constitutional Constitutional: Denies chills, Denies fatigue, Denies fever(s) and Denies lethargy ENT Ears, Nose, Mouth, and Throat: Denies neck pain Cardiovascular Cardiovascular: Denies chest pain, Denies edema and Denies dyspnea Respiratory Respiratory: Denies cough, Denies hemoptysis, Denies dyspnea and Denies wheezing Gastrointestinal Gastrointestinal: Denies abdominal pain, Denies nausea and Denies vomiting Genitourinary Genitourinary: Denies dysuria, Denies flank pain, Denies urinary hesitancy and Denies urinary urgency Musculoskeletal Musculoskeletal: Reports back pain, Reports muscle cramps, Denies neck pain, Denies numbness and Denies tingling Neurologic Neurologic: Denies numbness, Reports radicular pain, Denies restless legs, Denies tingling and Denies paresthesias Endocrine Endocrine: Denies fatigue Allergic/Immunologic Allergic/Immunologic: Denies wheezing PFSH Medical History 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) Anxiety (Chronic) Depression (Chronic) Restless leg syndrome (Acute) Rh negative state in antepartum period (Acute) Declines rhogam prenatally Surgical History section (07/14/08) 40w LTCS for arrest of descent Family History Father Essential hypertension Hyperlipidemia Mother Fibromyalgia Social History Smoking/Tobacco Use Status: Current every day Alcohol Intake: never Drug use: Never Household members: other Details: children: Mk, Jeanmarie, Arcadio Do you feel safe at home: Yes Do you feel safe in your relationship?: Yes Female Reproductive History Menstrual Age of Menarche: 13 Duration of menses: 3-5 days control method: none History History 7 Para Hx # Term Pregnancies 3 Multiple births 0 Hx # Pregnancies 0 Ectopic pregnancies 0 AB induced Hx Number of Living Children AB spontaneous Past Pregnancies Del. Date GA/Weeks # Outcome Route Wgt Sex Labor Lgth Anesthes ia Location Prov Complic Unknown Unsuccessful Unknown Unsuccessful 07/14/08 40 No Successful EP other 07/06/13 No vaginal Male CNM 12/26/14 No Successful Female 9 hrs CNM 09/26/18 40 No Successful vaginal 3.005 kg Male Hang Garcia, ANUSHA Delivery Date: On 08/31/18 @ 16:48 Radha Lamar SAB Delivery Date: On 08/31/18 @ 16:53 Radha Lamar SAB Delivery Date: 07/14/08 On 08/31/18 @ 16:47 Radha Lamar arrest of descent Delivery Date: 07/06/13 On 08/31/18 @ 16:50 Radha Lamar , retained placenta - removed under anesthesia Delivery Date: 12/26/14 No notes to display Delivery Date: 09/26/18 On 11/08/18 @ 14:28 JanettangelaamolErika Pecipitous delivery, Arrived in active labor, SROM clear fluid within 15 minutes of arrival and head seen on perineum. Controlled delivery with snug nuchal cord,. Exam Const General: cooperative, healthy appearing, comfortable and no acute distress Orientation: alert, awake and oriented x3 HENMT Head: normal to inspection, normocephalic and atraumatic Neck Neck: normal visual inspection, full ROM and no meningeal signs Chest Chest: normal inspection of the chest and normal palpation of entire chest wall Resp Effort & Inspection: normal respiratory effort and able to speak in complete sentences Auscultation: clear to auscultation bilaterally Cardio Rate: regular rate Rhythm: regular rhythm Pulses: normal peripheral pulses GI Inspection: normal to inspection Palpation: soft Back/Spine/Pelvis Back: no CVA tenderness Cervical Spine: normal cervical lordosis and cervical ROM normal Thoracic/Lumbar Spine: thoracic and lumbar spine normal to inspection, pain with thoraco-lumbar ROM, paraspinal tenderness, thoraco-lumbar ROM limited, thoraco- lumbar spasm, thoracic spinal tenderness, No lumbar spinal tenderness and No straight leg raise positive Pelvis: no pain with anterior-posterior compression Skin General skin exam: no rashes or lesions noted Neuro General: moves all extremities and normal light touch, pain and propioception Course Vital Signs Vital signs: Vital Signs Temperature 37 C 08/14/19 17:54 Pulse 98 H 08/14/19 17:54 Respiratory Rate 15 08/14/19 17:54 Blood Pressure 125/75 08/14/19 17:54 Pulse Oximetry 93 L 08/14/19 17:54 Temperature 37 C 08/14/19 17:54 Temperature Source Temporal Artery Scan 08/14/19 17:54 Pulse 98 H 08/14/19 17:54 Respiratory Rate 15 08/14/19 17:54 Respiratory Effort Non-Labored 08/14/19 17:59 Blood Pressure 125/75 08/14/19 17:54 Blood Pressure Position Sitting 08/14/19 17:54 Pulse Oximetry 93 L 08/14/19 17:54 Oxygen Delivery Method Room Air 08/14/19 17:54 Oxygen Flow Rate 0 08/14/19 17:54 Pain Level 9 08/14/19 17:54
[2019-08-14] MEDS: Acetaminophen 500 MG TAB 1000 MG PO (19:12)
[2019-08-14] MEDS: Cyclobenzaprine 10 MG TAB PO (19:13)
== END 2019-08-14 19:30 | disposition home or self-care (01) ==
PROVIDERS: Emergency Provider Physician Assistant; PCP Neuromusculoskeletal Medicine & OMM
DX: M54.6 Pain in thoracic spine (principal); G89.29 Other chronic pain; M62.830 Muscle spasm of back
CPT/HCPCS: 99283

== ENCOUNTER 2019-11-16 17:48 | Emergency (ER) | payer MEDICAID, SELFPAY ==
[2019-11-16 17:51] VITALS: BP 150/77; PULSE 109; RESP 20; TEMP 37.3; O2SAT 98
--- NOTE | 2019-11-16 18:02 | ED.GENADUL_ITS ---
Discharge Plan Disposition Patient Disposition: HOME Condition: Good Discharge Details Chief Complaint: DentalOral Clinical Impression: Pulpitis Primary Care Provider: Ashu Hills ED Provider: Severiaon Martinez Home Meds and New Rx's Prescriptions: New penicillin V potassium 500 mg tablet 500 mg PO QID 10 Days Qty: 40 RF: 0 Continued folic acid 1 mg tablet 1 mg PO DAILY RF: 0 buprenorphine HCl 8 mg tablet, sublingual 20 mg SL DAILY RF: 0 gabapentin 400 mg capsule 400 mg PO QID Qty: 16 RF: 0 Discontinued ibuprofen [Advil] 200 mg Tablet 600 mg PO Q6H PRN PRNRF: 0 Discharge Instructions Instructions: Toothache (ED) Additional Instructions: At this time you have irritation of your nerve in your tooth which is causing her pain, it is likely secondary to a mild infection. Please take the antibiotic as directed. Please take 1000 mg of Tylenol every 6 hours and 800 mg of ibuprofen every 6 hours to help with the pain. Please drink plenty of fluids, and take these medications on a full stomach. Please call the dental clinics on the dental sheet to find someone who would be able to do a root canal in a timely fashion. If you notice any worsening of your symptoms, or any new symptoms such as vomiting, diarrhea, fever, chills, shortness of breath, chest pain, numbness, weakness, or fainting , please return immediately to the emergency department for reevaluation. Please follow up with your primary care provider as soon as possible for reassessment and reevaluation. As always, it was a pleasure participating in your medical care today. Referrals: Ashu Hills [Primary Care Provider] - Medical Decision Making 34-year-old female with a past medical history of dental pain presents today for evaluation of dental pain. Patient states that for the last few weeks she has had pain in the left upper molar, she went to [facility] recently had a dental block and improvement of her pain. No antibiotics at that time. She has not yet followed up with a dentist, as she has been having hard time finding someone who will do a root canal rather than just pull the tooth. She does have follow-up a month away for a root canal though. Pain has returned in the last 12 hours, she admits to pain with chewing but denies any other pain, fever, chills, swelling, or discharge. She has been taking Tylenol and Motrin which have helped the pain but not resolved it. No other complaints at this time. Exam demonstrates no evidence of dental abscess, I suspect she has notable pulpitis. Dental block was performed with bupivacaine the patient had complete resolution of her symptoms. Recommend maximum doses of Tylenol and Motrin, will give penicillin for antibiotic coverage and dental sheet for c ontacting local dentist. Discussed red flags which to return. I have extensively reviewed the treatment plan and discharge instructions with the patient. I have addressed all patient concerns at this time. The patient was made aware of what symptoms to monitor for that would warrant a return to the emergency department. Discussed the plan with the patient, they demonstrate verbal understanding and agreement with our assessment and plan at this time. Time out was taken to identify the correct patient, procedure, and site. Risks and benefits were discussed with the patient and consent was obtained. Direct pressure was held over the area prior to the procedure to reduce painful injection. 7 cc?s of Bupivacaine 0.25% was instilled into the left upper posterior alveolar space with a 27 gauge needle.Complete analgesia was obtained. The patient tolerated the procedure. There were no complications. HPI General Date/Time Provider Initiated Documentation: 11/16/19 17:49 . HPI Narrative: 34-year-old female with a past medical history of dental pain presents today for evaluation of dental pain. Patient states that for the last few weeks she has had pain in the left upper molar, she went to [facility] recently had a dental block and improvement of her pain. No antibiotics at that time. She has not yet followed up with a dentist, as she has been having hard time finding someone who will do a root canal rather than just pull the tooth. She does have follow-up a month away for a root canal though. Pain has returned in the last 12 hours, she admits to pain with chewing but denies any other pain, fever, chills, swelling, or discharge. She has been taking Tylenol and Motrin which have helped the pain but not resolved it. No other complaints at this time. Related Data Home Medications Medication Instructions Recorded Confirmed folic acid 1 mg tablet 1 mg PO DAILY 06/22/18 11/16/19 buprenorphine HCl 8 mg sublingual 20 mg SL DAILY tab 09/15/18 11/16/19 tablet gabapentin 400 mg capsule 400 mg PO QID #16 cap 09/28/18 11/16/19 penicillin V potassium 500 mg PO QID 10 Days #40 tab 11/16/19 Previous Rx's Medication Instructions Recorded gabapentin 400 mg capsule 400 mg PO QID #16 cap 09/28/18 penicillin V potassium 500 mg PO QID 10 Days #40 tab 11/16/19 Allergies Allergy/AdvReac Type Severity Reaction Status Date / Time No Known Drug Allergies Allergy Unverified 11/16/19 17:53 General Stated Complaint: DentalOral JEROMY: 5 Review of Systems All systems reviewed & are unremarkable except as noted in HPI and below PFSH Social History Smoking/Tobacco Use Status: Current every day Alcohol Intake: never Drug use: Never Household members: other Details: children: Jeanmarie Terrazas Arcadio Do you feel safe at home: Yes Do you feel safe in your relationship?: Yes Female Reproductive History Menstrual Age of Menarche: 13 Duration of menses: 3-5 days control method: none History History 7 Para Hx # Term Pregnancies 3 Multiple births 0 Hx # Pregnancies 0 Ectopic pregnancies 0 AB induced Hx Number of Living Children AB spontaneous Past Pregnancies Del. Date GA/Weeks # Outcome Route Wgt Sex Labor Lgth Anesthes ia Location Prov Complic Unknown Unsuccessful Unknown Unsuccessful 07/14/08 40 No Successful EP other 07/06/13 No vaginal Male CNM 12/26/14 No Successful Female 9 hrs CNM 09/26/18 40 No Successful vaginal 3.005 kg Male Hang Garcia, [facility] Delivery Date: Radha Lamar Delivery Date: Radha Holland Delivery Date: 07/14/08 arrest of descent Radha Lamar Delivery Date: 07/06/13 , retained placenta - removed under anesthesia Radha Lamar Delivery Date: 12/26/14 No notes to display Delivery Date: 09/26/18 Pecipitous delivery, Arrived in active labor, SROM clear fluid within 15 minutes of arrival and head seen on perineum. Controlled delivery with snug nuchal cord,. Erika Morse Exam Narrative Exam Narrative: 1.Const: Well-nourished, Well-developed, appearing stated age 2.Eyes: PERRL, no conjunctival injection, and symmetrical lids. 3.ENT: Atraumatic external nose and ears. Moist MM. Neck: Symmetric, trachea midline, No thyromegaly. No evidence of swelling, edema, airway compromise, or periapical abscess. Reproducible pain on palpation of the left upper posterior molar. 4.CVS: +S1/S2, No murmurs or gallops. Peripheral pulses 2+ and equal in all extremities. Brisk capillary refill in all extremities. 5.RESP: Unlabored respiratory effort. Clear to auscultation bilaterally. No wheezes rales or rhonchi 6.GI: Soft, Nontender/Nondistended, No hepatosplenomegaly. No guarding or rebound. 7.MSK: Normocephalic/Atraumatic, Extremities w/o deformity or ttp No cyanosis or clubbing, Normal movement of all extremities 8.Skin: Warm, Dry. No rashes or lesions. 9.Neuro: emergency management system director II-XII grossly intact. Sensation grossly intact, no focal neurologic deficits. 10.Psych: (AAO) x3. Appropriate mood and affect Course Vital Signs Vital signs: Vital Signs Temperature 37.3 C 11/16/19 17:51 Pulse 109 H 11/16/19 17:51 Respiratory Rate 11/16/19 17:51 Blood Pressure 150/77 H 11/16/19 17:51 Pulse Oximetry 98 11/16/19 17:51 Temperature 37.3 C 11/16/19 17:51 Temperature Source Skin 11/16/19 17:51 Pulse 109 H 11/16/19 17:51 Respiratory Rate 11/16/19 17:51 Blood Pressure 150/77 H 11/16/19 17:51 Blood Pressure Position Sitting 11/16/19 17:51 Pulse Oximetry 98 11/16/19 17:51 Oxygen Delivery Method Room Air 11/16/19 17:51 Oxygen Flow Rate 0 11/16/19 17:51 Pain Level 9 11/16/19 17:51
[2019-11-16] MEDS: Bupivacaine 0.5% Pres-Free 30 ML VIAL (18:04)
== END 2019-11-16 18:06 | disposition home or self-care (01) ==
LOC: ER 18:13
PROVIDERS: Emergency Provider Student in an Organized Health Care Education/Training Program; PCP Neuromusculoskeletal Medicine & OMM
DX: R68.84 Jaw pain (principal); K04.01 Reversible pulpitis
CPT/HCPCS: 99283

== ENCOUNTER 2024-02-23 08:45 | Inpatient (IN) | payer MEDICAID, SELFPAY ==
[2024-02-23] VITALS (20 sets, daily range): BP systolic 127–169; BP diastolic 61–95; PULSE 62–112; RESP 14–26; TEMP 35.8–37; O2SAT 94–99; BMI 25.0
[2024-02-23 09:31] LABS: HCT 44.8 % (36.0-46.0); HGB 15.4 g/dL (11.2-15.7); MCH 31.2 pg (27.0-33.0); MCHC 34.4 % (32.0-36.0); MCV 91 fL (80-95); MPV 10.7 fL (8.0-11.0); Platelet Count 179 10^3/uL (130-400); RBC 4.94 10^6/uL (3.93-5.22); RDW 13.1 % (11.7-14.6); RDW-SD 43.2 fL; WBC 8.92 10^3/uL (4.4-10.8)
[2024-02-23 09:47] LABS: ALT 28 U/L (14-59); AST 23 U/L (15-37); Albumin 2.7 g/dL (3.4-5.0); Alkaline Phosphatase 194 U/L (46-116); Anion Gap 11.5 mmol/L (3-11); BUN 7 mg/dL (7-18); Bilirubin, Total 0.52 mg/dL (0.2-1.0); CO2 21.5 mmol/L (21.0-32.0); CREATININE 0.4 mg/dL (0.55-1.02); Calcium 8.8 mg/dL (8.5-10.1); Chloride 105 mmol/L (98-107); Estimated GFR 130.65 (mL/min/1.73m2); Glucose 107 mg/dL (74-106); Potassium 3.7 mmol/L (3.5-5.1); Sodium 138 mmol/L (136-145); Total Protein 6.8 g/dL (6.4-8.2)
--- NOTE | 2024-02-23 10:11 | ANES.PREOP_ITS ---
General Info Date of Service Date Performed: 02/23/24 Height: 5 ft 8 in Weight: 74.843 kg Body Mass Index (BMI): 25.0 Meds Allergies and Home Medications Allergies Allergy/AdvReac Type Severity Reaction Status Date / Time No Known Drug Allergies Allergy Unverified 11/16/19 17:53 Home Medication ?Medication ?Instructions ?Recorded folic acid 1 mg tablet 1 mg PO DAILY 06/22/18 buprenorphine HCl 8 mg sublingual 20 mg sublingual DAILY 09/15/18 tablet gabapentin 400 mg capsule 400 mg PO QID #16 caps 09/28/18 Current Visit Medications: Current Medications Generic Name Dose Route Start Last Admin Trade Name Freq PRN Reason Stop Dose Admin IV Miscellaneous Supplies 1 each 02/23/24 08:45 Iv Access IV DIRECTED GRACIE Sodium Chloride 0 ml 02/23/24 08:45 Normal Saline Flush 10 Ml Syr IVP PRN PRN Sodium Chloride 0 ml 02/23/24 20:00 Normal Saline Flush 10 Ml Syr IVP BID GRACIE Sodium Chloride 0 ml 02/23/24 08:45 Normal Saline 10 Ml Vial IJ DIRECTED PRN PFSH Active Problems Active Problems: Problem Status Onset Code Rh negative state in antepartum period Acute O26.899, Z67.91 Depression Chronic F32.9 Anxiety Chronic F41.9 Restless leg syndrome Acute G25.81 Resolved Z34.90 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 Resolved F19.939 (normal spontaneous vaginal delivery) Resolved 07/06/13 O80 Retained placenta or membranes without hemorrhage Resolved 07/06/13 O73.0 Previous section Acute 07/06/13 Z98.89 Medical History Medical History (Updated 02/23/24 @ 10:37 by Radha Lamar CNM) Retained placenta or membranes without hemorrhage (07/06/13) Surgical History Surgical History (Updated 02/23/24 @ 10:19 by Litzy Patel MD) section (07/14/08) 40w LTCS for arrest of descent Previous section (07/06/13) Tobacco Smoking/Tobacco Use Status: Current every day Alcohol Alcohol Intake: never Substance Use Substance use: Never Prental History History 2 7 Para Hx # Term Pregnancies 3 Multiple births 0 Hx # Pregnancies 0 Ectopic pregnancies 0 AB induced Hx Number of Living Children AB spontaneous Past Pregnancies Del. Date GA/Weeks # Preg Succ Route Wgt Sex Labor Lgth Anesth esia Location Prov Complic Unknown Unknown 07/14/08 40 No EP o ther 07/06/13 No vaginal Male CNM 12/26/14 No Female 9 hrs CNM 09/26/18 40 No vaginal 3005.049 g Male JodiGibbons CNM Delivery Date: Last Updated by: Radha Lamar CNM SAB Delivery Date: Last Updated by: Radha Lamar CNM SAB Delivery Date: 07/14/08 Last Updated by: Radha Lamar CNM arrest of descent Delivery Date: 07/06/13 Last Updated by: Radha Lamar CNM , retained placenta - removed under anesthesia Delivery Date: 09/26/18 Last Updated by: Erika Santana Pecipitous delivery, Arrived in active labor, SROM clear fluid within 15 minutes of arrival and head seen on perineum. Controlled delivery with snug nuchal cord,. Vital Signs and Lab Results Vital Signs Most Recent Vital Signs in EMR: Most Recent Vital Signs Temp Pulse Resp BP Pulse Ox 35.8 C L 71 20 164/71 H 99 02/23/24 09:16 02/23/24 09:52 02/23/24 09:16 02/23/24 09:52 02/23/24 09:16 Lab Results 02/23/24 09:22 02/23/24 09:22 Blood Type / Crossmatch: 2 No Data to Display Complete Blood Count: 2 White Blood Count 8.92 10^3/uL (4.4-10.8) 02/23/24 09:22 Red Blood Count 4.94 10^6/uL (3.93-5.22) 02/23/24 09:22 Hemoglobin 15.4 g/dL (11.2-15.7) 02/23/24 09:22 Hematocrit 44.8 % (36.0-46.0) 02/23/24 09:22 Platelet Count 179 10^3/uL (130-400) 02/23/24 09:22 Complete Metabolic Panel: 2 Sodium 138 mmol/L (136-145) 02/23/24 09:22 Potassium 3.7 mmol/L (3.5-5.1) 02/23/24 09:22 Chloride 105 mmol/L (98-107) 02/23/24 09:22 Carbon Dioxide 21.5 mmol/L (21.0-32.0) 02/23/24 09:22 BUN 7 mg/dL (7-18) 02/23/24 09:22 Creatinine 0.4 mg/dL (0.55-1.02) L 02/23/24 09:22 Est GFR (CKD-EPI 2020) 130.65 (mL/min/1.73m2) 02/23/24 09:22 Calcium 8.8 mg/dL (8.5-10.1) 02/23/24 09:22 Albumin 2.7 g/dL (3.4-5.0) L 02/23/24 09:22 Glucose 107 mg/dL (74-106) H 02/23/24 09:22 Liver Function Panel: 2 Alanine Aminotransferase (ALT/SGPT) 28 U/L (14-59) 02/23/24 09: 22 Aspartate Amino Transf (AST/SGOT) 23 U/L (15-37) 02/23/24 09:22 Coagulation Panel: 2 No Data to Display Cardiac Panel: 2 No Data to Display Arterial Blood Gas: 2 No Data to Display Venous Blood Gas: 2 No Data to Display Pancreas Panel: 2 No Data to Display Thyroid Panel: 2 No Data to Display Infectious Disease: 2 No Data to Display Blood Cultures: 2 No Data to Display Toxicology Panel: 2 No Data to Display Panel: 2 No Data to Display Anesthesia Assessment and Plan Anesthesia History Personal History: No History of Anesthesia Complications Family History: No Family History of Anesthesia Complications Exercise Tolerance Exercise Tolerance: Metabolic Equivalents>4 Pertinent Negatives Pertinent Negatives: No Symptoms of GERD, No Major Cardiovascular Symptoms or Complaints and No Major Pulmonary Symptoms or Complaints Cardiac & Pulmonary Exam Cardiac Exam: Normal S1/S2 Heart Sounds Pulmonary Exam: Clear Bilateral Breath Sounds Implantable Cardiac Device Does patient have a Pacemaker or an ICD?: No Airway Exam Known Difficult Airway: No Mallampati Class: 2 Mouth Opening: Narrow (< 3cm) Thyromental Distance: Greater than 3 cm Neck Range of Motion: Full ROM Neck Circumference: Normal Teeth Condition: Normal Dentition ASA Classification ASA Score: ASA 2 Emergency Case?: Yes NPO Status NPO Status: Full Stomach (last meal midnight) Status Status: Confirmed (Post delivery) Anesthesia Plan Resuscitation Status: Full Code Anesthesia Technique: General Anesthesia Airway Planned: Endotracheal Tube (RSI) Monitors Used: Standard Monitors
--- NOTE | 2024-02-23 10:18 | W.PM.PROGNOT ---
Date of Service Date of service: 02/23/24 Time of Service: 10:18 Assessment and Plan Assessment and plan (1) Retained placenta or membranes without hemorrhage: Assessment and plan: Pt prefers to go to the OR for removal of the remaining placental tissue. We discussed this and the OR was notified. Cephalexin ordered. Subjective Subjective Interval history since last seen: Pt had an uncomplicated vaginal delivery with the associate embalmer/funeral director. After 30min the placenta had not delivered. One attempt was made at manual extraction with use of Nitrous oxide and part of the placenta was delivered but it was very ratty and clearly not complete. Prior to removal she had clots in the lower uterine segment but afterwards her bleeding was stable. She opted for complete removal in the OR vs repeat attempt in the room. She does have a h/o retained placenta with removal in the OR previously. Exam Const General: cooperative, healthy appearing and no acute distress HENMT Head: normocephalic and atraumatic Ears: hearing grossly normal bilaterally Resp Effort & Inspection: normal respiratory effort and able to speak in complete sentences Neuro General: patient alert and patient awake Psych Appearance: grossly normal Mental Status: mental status grossly normal Speech and Movement: speech and movement normal Affect: normal affect Attitude: cooperative Thought Process: normal Thought Content: normal Objective Last Vital Signs Temp 96.5 F L 02/23/24 09:16 Pulse 71 02/23/24 09:52 Resp 20 02/23/24 09:16 BP 164/71 H 02/23/24 09:52 Pulse Ox 99 02/23/24 09:16 Laboratory Results - last 24 hr 02/23/24 09:22 WBC 8.92 RBC 4.94 Hgb 15.4 Hct 44.8 MCV 91 MCH 31.2 MCHC 34.4 RDW 13.1 Plt Count 179 MPV 10.7 Sodium 138 Potassium 3.7 Chloride 105 Carbon Dioxide 21.5 Anion Gap 11.5 H BUN 7 Creatinine 0.4 L Est GFR (CKD-EPI 2020) 130.65 Glucose 107 H Calcium 8.8 Total Bilirubin 0.52 AST 23 ALT 28 Alkaline Phosphatase 194 H Total Protein 6.8 Albumin 2.7 L ABO/Rh A Negative Antibody Screen NEGATIVE Objective Narrative Objective Narrative: QBL prior to the OR: 1150ml Time Spent with Patient Time Spent with Patient: 25-34 minutes Time was spent: preparing to see the patient(eg.review tests), obtaining and/or reviewing separately otained hiistory, ordering medications,tests, procedures, referring, communicating with other health care program director and counseling the patient
--- NOTE | 2024-02-23 10:25 | W.PM.OBHPL1 ---
Date of service: 02/23/24 Time of Service: 10:25 Assessment and Plan Assessment and plan (1) Spontaneous onset of labor: Status: Acute Assessment and plan: Admit to Center and routine admission labs. Comfort measures. Anticipate imminent . (2) Prolonged rupture of membranes: Status: Acute Assessment and plan: GBS confirmed neg in records from [facility] (3) Positive urine drug screen: Status: Acute Assessment and plan: obtain urine drug screen when she voids. (4) Opiate dependence: Status: Acute Assessment and plan: urine drug screen with fentanyl and burpenorphin escreening ordered. Await results. (5) Previous section: Status: Chronic Assessment and plan: Willem Callejas and livia aware of admission and OR notified. IV access and continuous monitoring. OB-HPI Labor/Delivery History of Present Illness Reason for Visit: ROL Chief Complaint: Uterine Contractions; Suspected Rupture of Membranes , Associated Signs and Symptoms of Suspected ROM: 0700 02/22/24. Comments: Estrellita's partner Avery called en route to the center and reported that she was 'having the baby. Upon arrival she report SROM yesterday morning at 0700. She was having regular strong contractions. History of Present Assessment: History Reviewed & Current ( care at [facility]. Records received yesterday when estrellita called to request transfer of care from there. ) Narrative: Estrellita has not had a visit here yet. She is in MAT program at [facility] in [place]. Positive urine drug screen noted in record from 02/02/24 Informed Consent Informed Consent: Risk,Benefits,Alternatives Discussed (Estrellita desires TOLAC) and Vaginal after [facility] All Active Problems Previous section (Chronic 07/06/13) Opiate dependence (Acute) Rh negative state in antepartum period (Acute) Declines rhogam prenatally Positive urine drug screen (Acute) opiates 02/02/24 Prolonged rupture of membranes (Acute) Spontaneous onset of labor (Acute) Depression (Chronic) Anxiety (Chronic) Restless leg syndrome (Acute) 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 (Acute) Medical History (Updated 02/23/24 @ 10:37 by Radha Lamar CNM) Retained placenta or membranes without hemorrhage (07/06/13) Surgical History (Updated 02/23/24 @ 10:39 by Radha Lamar CNM) section (07/14/08) 40w LTCS for arrest of descent Family History Father Essential hypertension Hyperlipidemia Mother Fibromyalgia Social History Smoking/Tobacco Use Status: Current every day Smoking risk assessment performed?: Yes Alcohol Intake: never Drug use: Never Household members: other Details: children: Jeanmarie Terrazas Orion Do you feel safe at home: Yes Do you feel safe in your relationship?: Yes Female Reproductive History Menstrual Age of Menarche: 13 Duration of menses: 3-5 days control method: none History History 7 Para Hx # Term Pregnancies 3 Multiple births 0 Hx # Pregnancies 0 Ectopic pregnancies 0 AB induced Hx Number of Living Children AB spontaneous Past Pregnancies Del. Date GA/Weeks # Preg Succ Route Wgt Sex Labor Lgth Anesthesia Location Prov Complic Unknown Unknown 07/14/08 40 No EP other 07/06/13 No vaginal Male CNM 12/26/14 No Female 9 hrs CNM 09/26/18 40 No vaginal 6 lb 10 oz Male Jodi Garcia CNM Delivery Date: Last Updated by: Radha Lamar CNM SAB Delivery Date: Last Updated by: Radha Lamar CNM SAB Delivery Date: 07/14/08 Last Updated by: Radha Lamar CNM arrest of descent Delivery Date: 07/06/13 Last Updated by: Radha Lamar CNM , retained placenta - removed under anesthesia Delivery Date: 09/26/18 Last Updated by: Erika Santana Pecipitous delivery, Arrived in active labor, SROM clear fluid within 15 minutes of arrival and head seen on perineum. Controlled delivery with snug nuchal cord,. Meds Allergies and Home Medications Allergies Allergy/AdvReac Type Severity Reaction Status Date / Time No Known Drug Allergies Allergy Unverified 11/16/19 17:53 Home Medications ?Medication ?Instructions ?Recorded ?Confirmed ?Type folic acid 1 mg tablet 1 mg PO DAILY 06/22/18 11/16/19 History buprenorphine HCl 8 mg sublingual 20 mg sublingual DAILY 09/15/18 11/16/19 History tablet gabapentin 400 mg capsule 400 mg PO QID #16 caps 09/28/18 11/16/19 Rx Exam Physical Exam Vital signs: Temp Pulse Resp BP Pulse Ox 96.5 F L 75 20 136/82 99 02/23/24 09:16 02/23/24 10:21 02/23/24 09:16 02/23/24 10:21 02/23/24 09:16 Vital Signs Reviewed: Yes Narrative: CMP drawn Constitutional Constitutional: moderate distress Detailed Labor and Delivery Exam Dilation: 7 Effacement (%): 90 station: +1 Position: NEW Cervix position: mid Consistency: soft Yeh Score: Cervical Points Exam 0 1 2 3 Dilation Closed 1-2cm 3-4 cm 5-6cm Effacement 0-30% 40-50% 60-70% 80% Consistency Firm Medium Soft Station -3 -2 -1,0 +1,+2 Position Posterior Mid Anterior Amniotic Membrane Status: Ruptured Rupture Method: Spontaneous Pooling: Negative Monitor Mode: External Contraction Frequency(min): every 3 min Contraction Duration(sec): 60 Contraction Intensity: Strong Fetus A Heart Rate Baseline: 130 Monitor Accelerations: 15 X 15 Monitor Decelerations: None and Variable (occasional) Variability: Moderate (6-25 BPM) Presentation: Cephalic Categories: Category I Date of Membrane Rupture: 02/22/24 Time of Membrane Rupture: 07:00 HEENT Exam HEENT Exam: Normal Respiratory Exam Respiratory Exam: Normal Cardiovascular Exam Cardiovascular Exam: Normal Abdominal Exam Abdominal Exam: Normal Extremities Exam Extremities Exam: Normal Skin Exam Skin Exam: Normal Psychiatric Exam Psychiatric Exam: Normal Results Results Group Beta Strep: Negative Abnormal Lab Findings: Abnormal Labs 02/23/24 09:22 Anion Gap 11.5 H Creatinine 0.4 L Glucose 107 H Alkaline Phosphatase 194 H Albumin 2.7 L Risk Assessment Risk for Shoulder Dystocia Historical/Initial OB: NEGATIVE FOR: Pelvic Abnormality, Pre- BMI>30, Previous Shoulder Dystocia or Previous Macrosomia 36 Weeks: NEGATIVE FOR: Current Gestational DM, EFW>4500gms or Maternal Weight Gain>40lbs 40 Weeks: NEGATIVE FOR: EFW> 4500 gms, Maternal Weight Gain >40lb or Post Dates Risk for Pre-Eclampsia Yes, if one or more: NEGATIVE FOR: Hx Pre-E/Gest HTN, Chronic HTN, Multiple Gestation, Pre-gestational DM, Renal Disease, Systemic Lupus or APA Syndrome Yes, if 2 or more: NEGATIVE FOR: Nulliparity, Age>= 35 yrs, >10yr btwn pregnancies, BMI>30, ethinicty, Mother/Sister w/ Pre-E or Previous IUGR Risk for Post- Hemorrhage Initial: POSITIVE FOR: Grand Multiparity 40 Weeks: NEGATIVE FOR: Anemia, hgb<10, Low platelets (thrombocytopenia), Gestation HTN or Pre-E, Polyhydraminios or EFW>4500gms At Risk?: Yes Risks Reviewed Risks Reviewed Upon Admission: Yes
[2024-02-23] MEDS: Lactated Ringers 1,000 ML 30 ML IV (10:49)
--- NOTE | 2024-02-23 11:20 | PLAC_PTH ---
PATIENT: Deidre Harkins LOC: OBS U#:[id number] AGE/SX: 39/F ROOM: OBS.305 RE02/23/[address]: Litzy Patel MD : 1985 BED: A DIS: 02/27/2024 SPEC #: [id number] RECD: 02/23/24 15:11 STATUS: TEJAL REQ #: [id number] GWEN: 02/23/24 11:[address]: Litzy Patel DEPT: Surgical Specimen RECD BY: Sruthi Landeros ENTERED: 02/23/24 15:13 SP TYPE: PLAC OTHR DR: Ashu Hills Tissues: 1 - PLACENTA (3RD TRIMESTER) Procedures: GROSS AND MICRO LEVEL 5 Comments: [id number]
[2024-02-23] MEDS: miSOPROStol 100 MCG TAB (11:25)
[2024-02-23 11:28] LABS: *AMPHETAMINES SCREEN URINE Negative (Negative); *BARBITURATES SCREEN URINE Negative (Negative); *BENZODIAZEPINES SCREEN URINE Negative (Negative); Cannabinoids THC Negative (Negative); Cocaine Screen,Urine Negative (Negative); OPIATES URINE SCREEN Negative (Negative); Tricyclic Antidepressants Negative (Negative)
--- NOTE | 2024-02-23 13:05 | W.OBDELIVERY ---
Date of service: 02/23/24 Time of Service: 13:05 OB Labor/ Delivery Information Baby A Delivery Delivery Method: Spontaneaous Presentation: Cephalic Cephalic Position: Vertex Vertex Position: Right Occipital Anterior Cord Description-Baby A: 3 Vessels Amniotic Fluid: Clear Estimated Blood Loss: 1250 Delivery Outcome: Liveborn Infant Transferred: Remains with Mother Note: FHTs 130s during first stage of labor. Deidre used nitrous oxide with fair effect and progressed quickly to full dilation. FHTs 130s in second stage. She began pushing well and a Second stage huddle was done. Spontaneous delivery of female infant delivered in NEW position. Baby was placed on mother's abdomen and dried and stimulated. Spontaneous cry. Cord was clamped and cut by the baby's father after it stopped pulsing. The placenta was undelivered at [address] Patel was consulted for removal. She was texted by RN at 0950 and then [facility] was called to request her presence in the delivery room and she arrived at 0955. Pitocin 30 units was administered before delivery of the placenta. The perineum was inspected and it was intact. The baby did breastfeed. EBL was 1250 after manual removal attempt by Dr Patel. The placenta was partially extracted under nitrous oxide for pain relief. Deidre was transported to the OR for pain relief and manual removal of the remainder of the placenta. Providers Doctor: Litzy Patel Nurse Budget Report Clerk: Radha Lamar Nurse: Estelle Martinez Nurse: Evin Gonzalez Labor/Delivery Information Number of Babies in Womb: 1 Steroids Given: None Reason Steroids Not Administered: N/A Group Beta Strep: Negative Antibiotics Administered: No Blood Type: A- Varicella Immunity: Not Tested (Rubella and varicella results are not in chart) Medication in Delivery: none Born En Route: No Maternal Complications: None Shoulder Dystocia: No Stages of Labor Onset of Labor Date: 02/23/24 Onset of Labor Time: 05:00 Complete Dilatation Date: 02/23/24 Complete Dilatation Time: 09:25 Labor - Stage 1 Duration: 4 hours and 25 minutes ROM Baby A: 02/22/24 ROM Baby A: 07:00 ROM Total Time- Baby A: [id number] Delivery Date-Baby A: 02/23/24 Infant Delivery Time-Baby A: 09:27 Labor Stage 2 Duration: 2 minutes Placenta Delivery Date-Baby A: 02/23/24 Total Length of Labor-Baby A: 4 hours and 27 minutes Placenta Status: Retained Baby A Infant Gender: Female Gestational Status: Early Term (37-38.6 wks) Gestational Age in Weeks/Days: 37 Weeks and 4 Days weight: 4 lb 14.485 oz Length-Baby A: 18 in Head Circumference-Baby A: 12.5 in Score-1 Minute Interval(Baby A) Heart Rate-1 minute: 100 BPM or Greater Respiratory Effort- 1 minute: Spontaneous/Strong Cry Muscle Tone-1 minute: Active Movement Reflex Response-1 minute: Prompt Response Color-1 minute: Bluish Hands or Feet Total Score-1 minute: 9 Score-5 Minute Interval(Baby A) Heart Rate- 5 minute: 100 BPM or Greater Respiratory Effort-5 minute: Spontaneous/Strong Cry Muscle Tone-5 minute: Active Movement Reflex Response-5 minute: Prompt Response Color-5 minute: Bluish Hands or Feet Total Score- 5 minute: 9 Hemorrrhage Note Hemorrhage Recognized Date Hemorrhage Recognized: 02/23/24 Time Hemorrhage Recognized: 09:45 Call for Help Date: 02/23/24 Time: 09:45 2nd RN in Room Date: 02/23/24 Time: 09:45 2nd RN: Evin Gonzalez Provider in Room Date: 02/23/24 Time: 09:55 Provider: Litzy Patel RN Light Out Examiner Notified Date: 02/23/24 Time: 10:00 RN Light Out Examiner on Floor Date: 02/23/24 Time: 10:15 Light Out Examiner: María Ramos Medication Administration 1st Administration: Medication: Oxytocin 30U/500 ml IV Medication Other/Dose/Route: No other medications recommended by Dr Patel as bleeding slowed down Total Blood Loss for PPH Event Quantitative Blood Loss: 1,250 (before transport to the OR) Labs Drawn Labs Drawn: No Transported to OR Date: 02/23/24 Time: 10:25
[2024-02-23] MEDS: Ibuprofen 600 MG TAB PO ×2 (13:09→22:17)
[2024-02-23] MEDS: Acetaminophen 325 MG TAB 650 MG PO ×2 (13:09→22:17)
[2024-02-23] MEDS: Buprenorphine/Naloxone 12 mg/3 mg FILM 1 EACH SL ×2 (13:22→13:27)
[2024-02-23] MEDS: Gabapentin 800 MG TAB PO ×3 (13:22→22:17)
--- NOTE | 2024-02-23 14:22 | W.PM.OP ---
Date of service: 02/23/24 Time of Service: 11:00 Operative Note Operative Note DATE OF PROCEDURE: 02/23/24 PRE-OP DIAGNOSIS: Retained placenta POST-OP DIAGNOSIS: same PROCEDURE: Evacuation of uterine contents SURGEON: Litzy Patel Refer to Anesthesia Record ESTIMATED BLOOD LOSS: 200 PATHOLOGY: other (placenta) COMPLICATIONS: None Patient was transported to: floor Patient's condition: stable Indications: Pt is a who had an NVD and no delivery of the placenta 30min later. Therefore an attempt was made at manual evacuation in the room with NO but the placenta was very adherent and only half of it was removed. She opted for further evacuation in the OR. Findings: There was a gush of blood just prior to the start of the procedure but then no further significant bleeding. The other half of the placenta was fully adherent to the uterus but removed easily with manual separation. Procedure Description: After informed consent was signed the patient was taken to the operating room and given General room air anesthesia. She was prepped and draped in the dorsal lithotomy position in the [facility]. A time out was performed. Her bladder was drained of urine and a urine tox screen sent. Exam under anesthesia revealed that the rest of the placenta was still adherent to the fundus of the uterus. This was manually with full removal of the placenta. Afterwards the fundus was firm but the lower uterine segment was not so she was given 600mg of misoprostol with good hemostasis resulting. The patient was placed back into the supine position. She was moved to the stretcher and taken to the recovery room in stable condition.
--- NOTE | 2024-02-23 17:05 | W.ANESPOSTOP ---
Postoperative Evaluation Date, Time and Location Date Performed: 02/23/24 Time Performed: 11:40 Patient Location: Day Surgery Unit Vital Signs Most Recent Imported Vital Signs: Most Recent Vital Signs Temp Pulse Resp BP Pulse Ox 36.9 C 74 17 132/65 99 02/23/24 15:17 02/23/24 15:17 02/23/24 15:17 02/23/24 15:17 02/23/24 15:17 Pain Score Most Recent Pain Score: Most Recent Pain Score Pain Level [Abdomen] 4 02/23/24 15:17 Pain Level 10 02/23/24 08:59 Assessment Mental Status: Awake (Alert & Oriented to Patient Baseline) Airway and Respiratory Function: Patent airway with normal (patient baseline) respiratory exam Cardiovascular Function: Hemodynamically Stable Hydration Status: Adequately Hydrated Nausea & Vomiting: No Nausea or Vomiting Pain: Pain is tolerable per patient Peripheral Nerve Block: Patient did not receive a nerve block
[2024-02-23] MEDS: Buprenorphine/Naloxone 8 mg/2 mg FILM 1 EACH SL (20:15)
[2024-02-24 08:07] VITALS: BP 109/65; PULSE 66; RESP 20; TEMP 37.2; O2SAT 99
[2024-02-24] MEDS: Ibuprofen 600 MG TAB PO ×2 (08:28→14:10)
[2024-02-24] MEDS: Buprenorphine/Naloxone 12 mg/3 mg FILM 1 EACH SL (08:29)
[2024-02-24] MEDS: Gabapentin 800 MG TAB PO ×3 (08:29→20:01)
[2024-02-24] MEDS: Buprenorphine/Naloxone 8 mg/2 mg FILM 1 EACH SL (08:29)
[2024-02-24] MEDS: Acetaminophen 325 MG TAB 650 MG PO ×2 (08:29→14:10)
[2024-02-24 10:21] LABS: HGB 11.1 g/dL (11.2-15.7); MCH 31.3 pg (27.0-33.0); MCHC 33.6 % (32.0-36.0); MCV 93 fL (80-95); MPV 10.8 fL (8.0-11.0); Platelet Count 175 10^3/uL (130-400); RBC 3.55 10^6/uL (3.93-5.22); RDW 13.2 % (11.7-14.6); WBC 10.38 10^3/uL (4.4-10.8)
[2024-02-24 12:32] LABS: Fentanyl Scr w/Rfx Confirm Negative ng/mL (<1)
[2024-02-24 20:30] VITALS: BP 123/56; PULSE 71; RESP 18
--- NOTE | 2024-02-25 09:20 | W.PM.OBPNV1 ---
Date of service: 02/24/24 Time of Service: 13:00 Assessment and Plan Assessment and plan (1) , delivered, current hospitalization: Status: Acute Assessment and plan: A: PPD#1, multipara, nml recovery s/p s/p PPH and retained placenta, hgb >11 today Pt in recovery with MAT, infant obs for ESC/KHALIF x5 days P: MD following for post-op care Pt declines RhoGam and MMR vaccine Handout reviewed and given to pt regarding Rh sensitization risk Pt undecided regarding BCM, states she does not plan future Plan discharge to boarder status tomorrow Subjective Subjective Patient comments: Pain well controlled, Tolerating diet and Flatus present Patient's Mood: tired, guarded baby status: Rooming in and Strong Bonding Observed feeding status: Exclusively breast feeding and Cup Feeding Exam Physical Exam Vital signs: Temp Pulse Resp BP Pulse Ox 99.0 F 71 18 123/56 L 99 02/24/24 08:07 02/24/24 20:30 02/24/24 20:30 02/24/24 20:30 02/24/24 08:07 Vital Signs Reviewed: Yes Constitutional Constitutional: no acute distress and average body habitus HEENT Exam HEENT Exam: Normal Neck Exam Neck Exam: Normal Breast Exam Bilateral: Breast Exam: Normal and Soft Nipple Exam: Normal and Other (sore) Respiratory Exam Respiratory Exam: Normal Cardiovascular Exam Cardiovascular Exam: Normal Abdominal Exam Abdomen: Other (soft and nontender) Fundal Exam Fundus: Below Umbilicus and Firm Rectal Exam Rectal Exam: Normal Exam Patient deferred: external exam Extremities Exam Extremity Exam: Normal and Warm to Touch Back/Spine/Pelvis Exam Back Exam: Normal Skin Exam Skin Exam: Normal Neurological Exam Neurological Exam: Normal Psychiatric Exam Psychiatric Exam: Normal Results Hemoglobin/Hematocrit: Hgb 11.1 g/dL (11.2-15.7) L D 02/24/24 10:06 Hct 33.0 % (36.0-46.0) L 02/24/24 10:06 Abnormal Lab Findings: Abnormal Labs 02/23/24 02/24/24 09:22 10:06 RBC 3.55 L Hgb 11.1 L D Hct 33.0 L Anion Gap 11.5 H Creatinine 0.4 L Glucose 107 H Alkaline Phosphatase 194 H Albumin 2.7 L Hemorrrhage Note Hemorrhage Recognized Date Hemorrhage Recognized: 02/23/24 Time Hemorrhage Recognized: 09:45 Call for Help Date: 02/23/24 Time: 09:45 2nd RN in Room Date: 02/23/24 Time: 09:45 2nd RN: Evin Gonzalez Provider in Room Date: 02/23/24 Time: 09:55 Provider: Litzy Patel RN Lead Front End Developer Notified Date: 02/23/24 Time: 10:00 RN Lead Front End Developer on Floor Date: 02/23/24 Time: 10:15 Lead Front End Developer: María Ramos Total Blood Loss for PPH Event Quantitative Blood Loss: 1,250 (before transport to the OR) Labs Drawn Labs Drawn: No Transported to OR Date: 02/23/24 Time: 10:25
[2024-02-25] MEDS: Buprenorphine/Naloxone 12 mg/3 mg FILM 1 EACH SL (09:21)
[2024-02-25] MEDS: Buprenorphine/Naloxone 8 mg/2 mg FILM 1 EACH SL (09:21)
[2024-02-25] MEDS: Gabapentin 800 MG TAB PO ×3 (09:22→20:51)
[2024-02-25 09:36] VITALS: BP 131/80; PULSE 60; RESP 17; TEMP 36.8; O2SAT 99
[2024-02-25 10:17] LABS: Varicella IgG Antibody Positive (See Note)
--- NOTE | 2024-02-25 13:39 | OBPPV_ITS ---
Date of service: 02/25/24 Time of Service: 13:39 Assessment and Plan Assessment and plan (1) , delivered, current hospitalization: Status: Acute Assessment and plan: A: PPD#2, multipara, nml recovery s/p s/p PPH and retained placenta, hgb >11 today obs for ESC/KHALIF x5 days & doing well P: Pt remains undecided regarding BCM, states family is complete Declines boarder status, receiving MAT while inpt which she otherwise has to travel for Subjective Subjective Patient comments: No complaints, Pain well controlled, Tolerating diet and Flatus present Patient's Mood: rested after sleeping better last night [place] baby status: Doing well, Nursing well, Rooming in and Strong Bonding Observed [place] feeding status: Exclusively breast feeding and Cup Feeding Exam Physical Exam Vital signs: Temp Pulse Resp BP Pulse Ox 98.2 F 60 17 131/80 99 02/25/24 09:36 02/25/24 09:36 02/25/24 09:36 02/25/24 09:36 02/25/24 09:36 Vital Signs Reviewed: Yes Constitutional Constitutional: no acute distress and average body habitus HEENT Exam HEENT Exam: Normal Neck Exam Neck Exam: Normal Breast Exam Bilateral: Breast Exam: Normal and Soft Respiratory Exam Respiratory Exam: Normal Cardiovascular Exam Cardiovascular Exam: Normal Abdominal Exam Abdomen: Other (soft and nontender) Fundal Exam Fundus: Below Umbilicus and Firm Rectal Exam Rectal Exam: Normal Exam Patient deferred: external exam Extremities Exam Extremity Exam: Normal and Warm to Touch Back/Spine/Pelvis Exam Back Exam: Normal Skin Exam Skin Exam: Normal Neurological Exam Neurological Exam: Normal Psychiatric Exam Psychiatric Exam: Normal Results Hemoglobin/Hematocrit: Hgb 11.1 g/dL (11.2-15.7) L D 02/24/24 10:06 Hct 33.0 % (36.0-46.0) L 02/24/24 10:06 Abnormal Lab Findings: Abnormal Labs 02/23/24 02/23/24 02/24/24 09:22 09:27 10:06 RBC 3.55 L Hgb 11.1 L D Hct 33.0 L Anion Gap 11.5 H Creatinine 0.4 L Glucose 107 H Alkaline Phosphatase 194 H Albumin 2.7 L Umb Norbuprenorphine 1.7 A Hemorrrhage Note Hemorrhage Recognized Date Hemorrhage Recognized: 02/23/24 Time Hemorrhage Recognized: 09:45 Call for Help Date: 02/23/24 Time: 09:45 2nd RN in Room Date: 02/23/24 Time: 09:45 2nd RN: Evin Gonzalez Provider in Room Date: 02/23/24 Time: 09:55 Provider: Litzy Patel RN Applications Analyst Notified Date: 02/23/24 Time: 10:00 RN Applications Analyst on Floor Date: 02/23/24 Time: 10:15 Applications Analyst: María Ramos IV Site Left Forearm: IV Catheter Gauge: 20 Right Hand: IV Catheter Gauge: 20 Medication Administration 1st Administration: Medication: Oxytocin 30U/500 ml IV Medication Other/Dose/Route: No other medications recommended by Dr Patel as bleeding slowed down Total Blood Loss for PPH Event Quantitative Blood Loss: 1,250 (before transport to the OR) Labs Drawn Labs Drawn: No Transported to OR Date: 02/23/24 Time: 10:25
[2024-02-25 20:30] VITALS: BP 105/62; PULSE 85; RESP 18; TEMP 36.6
[2024-02-26] MEDS: Gabapentin 800 MG TAB PO ×3 (08:44→19:53)
[2024-02-26 08:45] VITALS: BP 137/82; PULSE 77; RESP 14; TEMP 37.2
[2024-02-26] MEDS: Buprenorphine/Naloxone 12 mg/3 mg FILM 1 EACH SL (08:45)
[2024-02-26] MEDS: Buprenorphine/Naloxone 8 mg/2 mg FILM 1 EACH SL (08:46)
--- NOTE | 2024-02-26 16:56 | CMPROGNOTE_ITS ---
Date of service: 02/26/24 Time of Service: 16:56 Care Management Progress Note Progress Note Text Progress Note Text: JULIO was consulted to meet with Deidre, as the provider is planning to discharge her from inpatient status, and she will be a boarder, staying with her baby until baby is ready for discharge, likely Thursday morning. Deidre is on a MAT treatment program through [facility] in [place], [place]. When the provider informed her that she will likely be discharged, she expressed concern about not having access to her medications, as they are in [place], and she did not have any suboxone, as her refill was due on Thursday, and she presented to [facility] and had her baby on Thursday. CM contacted a [facility] rep in [place], who was able to contact Deidre's prescriber, and sent in a prescription for a week of suboxone; CM requested that this be sent to [facility] in [facility]. CM called [facility] in [facility] later in the afternoon, and was informed that the prescription was sent to the [facility] in [place]; CM asked for this to be changed, and was told by the [facility] pharmacy rep that this would not be a problem. CM met with Deidre, who stated that her only concern about changing her status to boarder was her medication. She stated that she would be able to access [facility] in [facility] to get her medications. She reported that she has another medication (gabapentin) which is prescribed by another provider. Deidre's RN planned to ask the [facility] center provider if a short prescription could be sent to [facility] in [facility] for this medication also, to bridge her while she is not an inpatient, but still at [facility] with her baby. CM will continue to follow. SDOH(Care Management) Screening Will the Patient Participate in the Screening?: Unable to obtain
--- NOTE | 2024-02-26 17:27 | OBPPV_ITS ---
Date of service: 02/26/24 Time of Service: 16:00 Assessment and Plan Assessment and plan (1) , delivered, current hospitalization: Status: Acute Assessment and plan: A: PPD#3, nml recovery s/p , stable, experienced mother Infant obs for ESC/KHALIF x5 days & doing well Pt's meds include suboxone and gabapentin, she does not have personal supply with her P: Pt remains undecided regarding BCM, states family is complete Continues to decline discharge from inpatient status, Rx access is her stated reason [facility] Offbearer referral made to facilitate local access to suboxone Reviewed with Dr. Davis for gabapentin Rx tide-over, Will d/c to boarder status tomorrow morning after verifying local access to medication Subjective Subjective Patient comments: No complaints, Pain well controlled and Tolerating diet Patient's Mood: attentive to baby [place] baby status: Doing well, Nursing well, Rooming in and Strong Bonding Observed feeding status: Exclusively breast feeding and Cup Feeding Exam Physical Exam Vital signs: Temp Pulse Resp BP Pulse Ox 99.0 F 77 14 137/82 99 02/26/24 08:45 02/26/24 08:45 02/26/24 08:45 02/26/24 08:45 02/25/24 09:36 Vital Signs Reviewed: Yes Constitutional Constitutional: no acute distress and average body habitus HEENT Exam HEENT Exam: Normal Neck Exam Neck Exam: Normal Breast Exam Bilateral: Breast Exam: Normal and Soft Respiratory Exam Respiratory Exam: Normal Cardiovascular Exam Cardiovascular Exam: Normal Abdominal Exam Abdomen: Other (soft and nontender) Fundal Exam Fundus: Below Umbilicus and Firm Rectal Exam Rectal Exam: Normal Exam Patient deferred: external exam Extremities Exam Extremity Exam: Normal and Warm to Touch Back/Spine/Pelvis Exam Back Exam: Normal Skin Exam Skin Exam: Normal Neurological Exam Neurological Exam: Normal Psychiatric Exam Psychiatric Exam: Normal Hemorrrhage Note Hemorrhage Recognized Date Hemorrhage Recognized: 02/23/24 Time Hemorrhage Recognized: 09:45 Call for Help Date: 02/23/24 Time: 09:45 2nd RN in Room Date: 02/23/24 Time: 09:45 2nd RN: Evin Gonzalez Provider in Room Date: 02/23/24 Time: 09:55 Provider: Litzy Patel RN Office Nurse Practitioner Notified Date: 02/23/24 Time: 10:00 RN Office Nurse Practitioner on Floor Date: 02/23/24 Time: 10:15 Office Nurse Practitioner: María Ramos IV Site Left Forearm: IV Catheter Gauge: 20 Right Hand: IV Catheter Gauge: 20 Medication Administration 1st Administration: Medication: Oxytocin 30U/500 ml IV Medication Other/Dose/Route: No other medications recommended by Dr Patel as bleeding slowed down Total Blood Loss for PPH Event Quantitative Blood Loss: 1,250 (before transport to the OR) Labs Drawn Labs Drawn: No Transported to OR Date: 02/23/24 Time: 10:25
[2024-02-26 19:00] VITALS: BP 137/69; PULSE 88; RESP 16; TEMP 37.1; O2SAT 96
[2024-02-26] MEDS: Ibuprofen 600 MG TAB PO (19:53)
[2024-02-26] MEDS: Docusate Sodium 100 MG CAP PO (19:53)
[2024-02-26 21:56] VITALS: TEMP 37.2
[2024-02-26 22:27] LABS: Abs Immature Grans 0.04 10^3/uL (0.0-0.06); Absolute Basophil Count 0.03 10^3/uL (0.0-0.2); Absolute Eosinophil Count 0.15 10^3/uL (0.0-0.7); Absolute Lymphocyte Count 2.36 10^3/uL (1.2-3.4); Absolute Monocyte Count 0.53 10^3/uL (0.1-0.8); Absolute Neutrophil Count 5.35 10^3/uL (1.2-6.7); Basophils % 0.4 %; Eosinophils % 1.8 %; HCT 31.7 % (36.0-46.0); HGB 10.8 g/dL (11.2-15.7); Immature Grans % 0.5 %; Lymphocytes % 27.9 %; MCH 31.5 pg (27.0-33.0); MCHC 34.1 % (32.0-36.0); MCV 92 fL (80-95); MPV 10.1 fL (8.0-11.0); Monocytes % 6.3 %; Neutrophils % 63.1 %; Platelet Count 203 10^3/uL (130-400); RBC 3.43 10^6/uL (3.93-5.22); RDW 13.1 % (11.7-14.6); RDW-SD 44.1 fL; WBC 8.46 10^3/uL (4.4-10.8)
--- NOTE | 2024-02-27 09:50 | W.PM.OBPNV1 ---
Date of service: 02/27/24 Time of Service: 09:50 Assessment and Plan Assessment and plan (1) , delivered, current hospitalization: Status: Acute Assessment and plan: A: PPD#4, afebrile, P<100, normotensive, WBC is nml, abd exam is negative Pt did receive 2 gms Ancef intra-operatively @ day or delivery Caring well for , and pumping milk to feed baby P: Pt remains undecided regarding BCM, will discuss @ 2 wk PP appt All medications are available for pt to pick-up at [facility] this morning Chooses to have PP f/up with the midwifery service, message to [facility] to schedule Written instructions reviewed and given to pt Discharge to boarder status Subjective Subjective Interval history: Had some chills last evening, wondered if she was getting an infection which happened after her last delivery 1 week later, she had no fever and she does have right breast engorgement which she treated with massage and ibuprofen. Was glad to know her CBC results last night were normal. Patient comments: Pain well controlled and Tolerating diet Patient's Mood: calm [place] baby status: Doing well, Nursing well, Rooming in and Strong Bonding Observed [place] feeding status: Exclusively breast feeding and Cup Feeding Exam Physical Exam Vital signs: Temp Pulse Resp BP Pulse Ox 99.0 F 88 16 137/69 96 02/26/24 21:56 02/26/24 19:00 02/26/24 19:00 02/26/24 19:00 02/26/24 19:00 Vital Signs Reviewed: Yes Constitutional Constitutional: no acute distress, average body habitus and cooperative HEENT Exam HEENT Exam: Normal Neck Exam Neck Exam: Normal Breast Exam Bilateral: Breast Exam: Normal and Soft Respiratory Exam Respiratory Exam: Normal Cardiovascular Exam Cardiovascular Exam: Normal Abdominal Exam Abdomen: Other (soft and nontender) Fundal Exam Fundus: Below Umbilicus and Firm Rectal Exam Rectal Exam: Normal Exam Patient deferred: external exam Extremities Exam Extremity Exam: Normal and Warm to Touch Back/Spine/Pelvis Exam Back Exam: Normal Skin Exam Skin Exam: Normal Neurological Exam Neurological Exam: Normal Psychiatric Exam Psychiatric Exam: Normal Results Abnormal Lab Findings: Abnormal Labs 02/23/24 02/24/24 02/26/24 09:22 10:06 22:23 RBC 3.55 L 3.43 L Hgb 11.1 L D 10.8 L Hct 33.0 L 31.7 L Anion Gap 11.5 H Creatinine 0.4 L Glucose 107 H Alkaline Phosphatase 194 H Albumin 2.7 L Additional Findings Results: WBC 8.4 Hemorrrhage Note Hemorrhage Recognized Date Hemorrhage Recognized: 02/23/24 Time Hemorrhage Recognized: 09:45 Call for Help Date: 02/23/24 Time: 09:45 2nd RN in Room Date: 02/23/24 Time: 09:45 2nd RN: Evin Gonzalez Provider in Room Date: 02/23/24 Time: 09:55 Provider: Litzy Patel RN Talent Development Manager Notified Date: 02/23/24 Time: 10:00 RN Talent Development Manager on Floor Date: 02/23/24 Time: 10:15 Talent Development Manager: María Ramos IV Site Left Forearm: IV Catheter Gauge: 20 Right Hand: IV Catheter Gauge: 20 Medication Administration 1st Administration: Medication: Oxytocin 30U/500 ml IV Medication Other/Dose/Route: No other medications recommended by Dr Patel as bleeding slowed down Total Blood Loss for PPH Event Quantitative Blood Loss: 1,250 (before transport to the OR) Labs Drawn Labs Drawn: No Transported to OR Date: 02/23/24 Time: 10:25
--- NOTE | 2024-02-27 10:00 | DSE_ITS ---
Date of service: 02/27/24 Time of Service: 10:01 DS: Diagnosis Discharge Diagnosis (1) , delivered, current hospitalization: Status: Acute Discharge Plan Disposition Patient Disposition: Home Condition: Good Discharge Details Reason For Visit: ROL Admit Date/Time: 02/23/24 08:45 Admit Provider: Litzy Patel Attending Provider: Litzy Patel Primary Care Provider: Ashu [facility] Hospital Course Hospital Course: Successful on day of admission, spontaneous labor at term, retained placenta with hemorrhage, removal of placenta in OR, no blood transfusion indicated. Nml recovery, discharge to boarder status on day #4, . Home Meds and New Rx's Prescriptions: No Action docusate sodium [Colace] 100 mg capsule 100 mg PO BID Qty: 60 3RF gabapentin 800 mg tablet 800 mg PO TID 3 Days Qty: 9 0RF ibuprofen 600 mg tablet 600 mg PO Q6H PRN (Reason: pain) Qty: 10 0RF buprenorphine-naloxone [Suboxone] 12-3 mg film 1 film sublingual DAILY Patient Comments: PLACE ONE FILM UNDER THE TONGUE EVERY MORNING buprenorphine-naloxone [Suboxone] 8-2 mg film 1 film sublingual DAILY Patient Comments: PLACE ONE FILM UNDER THE TONGUE EVERY MORNING Discharge Instructions Additional Instructions: you will be given 2 and 6 wk appointments with the midwives for follow-up care, please call for concerns or questions. Stand Alone Forms: BC Instructions, BC Post Vaginal Deliver Activity:: Activity as Tolerated Equipment/Supplies:: No Equipment Needed Diet:: Normal Diet OB:DS Summary Summary Vaginal Delivery Method: Spontaneaous Contraception Discussed Contraception Discussed: Yes Contraceptive Plan: Undecided, Gender-Baby A: Female weight: 4 lb 14.485 oz Status at Discharge Functional status at discharge: independent ambulation Overall status at discharge: patient is progressing back to baseline Mental Status: mental status grossly normal Speech and Movement: speech and movement normal Mood: congruent mood Affect: normal affect Quality:SDOH Health Related Social Needs: No Data to Display Exam Physical Exam Vital signs: Temp Pulse Resp BP Pulse Ox 99.0 F 88 16 137/69 96 02/26/24 21:56 02/26/24 19:00 02/26/24 19:00 02/26/24 19:00 02/26/24 19:00 Constitutional Constitutional: no acute distress, average body habitus and cooperative HEENT Exam HEENT Exam: Normal Neck Exam Neck Exam: Normal Breast Exam Bilateral: Breast Exam: Normal and Soft Respiratory Exam Respiratory Exam: Normal Cardiovascular Exam Cardiovascular Exam: Normal Abdominal Exam Abdomen: Other (soft and nontender) Fundal Exam Fundus: Below Umbilicus and Firm Rectal Exam Rectal Exam: Normal Exam Patient deferred: external exam Extremities Exam Extremity Exam: Normal and Warm to Touch Back/Spine/Pelvis Exam Back Exam: Normal Skin Exam Skin Exam: Normal Neurological Exam Neurological Exam: Normal Psychiatric Exam Psychiatric Exam: Normal PFSH All Active Problems , delivered, current hospitalization (Acute) ADHD (Acute) Opiate dependence (Acute) Depression (Chronic) Anxiety (Chronic) Restless leg syndrome (Acute) 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 (Acute) Medical History (Updated 02/25/24 @ 11:17 by Elisa Garcia) Prolonged rupture of membranes Rh negative state in antepartum period Declines rhogam prenatally Spontaneous onset of labor Positive urine drug screen opiates 02/02/24 Retained placenta or membranes without hemorrhage (07/06/13) Surgical History (Updated 02/25/24 @ 09:23 by Elisa Garcia) Previous section (07/06/13) section (07/14/08) 40w LTCS for arrest of descent Family History Father Essential hypertension Hyperlipidemia Mother Fibromyalgia Social History Smoking/Tobacco Use Status: Current every day Smoking risk assessment performed?: Yes Alcohol Intake: never Drug use: Never Household members: other Details: children: Mk, Jeanmarie, Arcadio Housing: apartment Do you feel safe at home: Yes Do you feel safe in your relationship?: Yes Female Reproductive History Menstrual Age of Menarche: 13 Duration of menses: 3-5 days control method: none History History 7 Para 5 Hx # Term Pregnancies 3 Multiple births 0 Hx # Pregnancies 0 Ectopic pregnancies 0 AB induced Hx Number of Living Children AB spontaneous Past Pregnancies Del. Date GA/Weeks # Preg Succ Route Wgt Sex Labor Lgth Anesth esia Location Prov Complic Unknown Unknown 07/14/08 40 No EP o ther 07/06/13 No vaginal Male CNM 12/26/14 No Female 9 hrs CNM 09/26/18 40 No vaginal 6 lb 10 oz Male Jodi Garcia CNM Delivery Date: Last Updated by: Radha Lamar CNM SAB Delivery Date: Last Updated by: Radha Lamar CNM SAB Delivery Date: 07/14/08 Last Updated by: Radha Lamar CNM arrest of descent Delivery Date: 07/06/13 Last Updated by: Radha Lamar CNM , retained placenta - removed under anesthesia Delivery Date: 09/26/18 Last Updated by: Erika Santana Pecipitous delivery, Arrived in active labor, SROM clear fluid within 15 minutes of arrival and head seen on perineum. Controlled delivery with snug nuchal cord,. DS: Data Vitals/I&O Vitals and I&O: Vital Signs Temperature 99.0 F 02/26/24 21:56 Temperature Source Oral 02/26/24 21:56 Pulse 88 02/26/24 19:00 Pulse Rhythm Regular 02/26/24 19:00 Respiratory Rate 16 02/26/24 19:00 Respiratory Depth Normal 02/25/24 09:29 Blood Pressure 137/69 02/26/24 19:00 Blood Pressure Mean 91 02/26/24 19:00 Pulse Oximetry 96 02/26/24 19:00 Respiratory End-tidal CO2 34 02/23/24 11:59 Oxygen Delivery Method Room Air 02/23/24 11:59 Oxygen Flow Rate 0 02/23/24 11:59 Pain Level 0 02/26/24 08:45 Comment pt c/o feeling like she might be getting an infection 02/26/24 21:56 Intake & Output 02/26/24 02/26/24 02/27/24 11:59 23:59 11:59 Other: Urine Color Yellow Data Completed and Pending Labs on day of discharge: Labs from last 24 hours 02/26/24 22:23 WBC 8.46 RBC 3.43 L Hgb 10.8 L Hct 31.7 L MCV 92 MCH 31.5 MCHC 34.1 RDW 13.1 Plt Count 203 MPV 10.1 Immature Gran % 0.5 Neutrophils % 63.1 Lymphocytes % 27.9 Monocytes % 6.3 Eosinophils % 1.8 Basophils % 0.4 Nucleated RBC % 0.0 Absolute Neutrophils 5.35 Absolute Lymphocytes 2.36 Absolute Monocytes 0.53 Absolute Eosinophils 0.15 Absolute Basophils 0.03
== END 2024-02-27 11:00 | disposition home or self-care (01) | DRG 806 ==
PROVIDERS: Advanced Practice Midwife; Admitting Provider Obstetrics & Gynecology; PCP Neuromusculoskeletal Medicine & OMM; Visit Provider Obstetrics & Gynecology
PROC: 10D17Z9 Manual Extraction of Products of Conception, Retained, Via Natural or Artificial Opening (ICD-10-PCS; CPT 59841; principal; 2024-02-23 10:45)
DX: O42.92 Full-term premature rupture of membranes, unspecified as to length of time between rupture and onset of labor (principal); F11.20 Opioid dependence, uncomplicated; Z37.0 Single live birth; O72.2 Delayed and secondary postpartum hemorrhage; O99.324 Drug use complicating childbirth; O99.354 Diseases of the nervous system complicating childbirth; Z3A.37 37 weeks gestation of pregnancy; O34.211 Maternal care for low transverse scar from previous cesarean delivery; N85.8 Other specified noninflammatory disorders of uterus; Z67.91 Unspecified blood type, Rh negative; O26.893 Other specified pregnancy related conditions, third trimester; O99.344 Other mental disorders complicating childbirth; F41.8 Other specified anxiety disorders; G25.81 Restless legs syndrome; F90.9 Attention-deficit hyperactivity disorder, unspecified type
CPT/HCPCS: 59414; 36415; 80053; 80307; 80324; 80346; 80348; 80353; 80354; 80356; 80358; 80361; 80365; 80373; 85027; 85461; 86787; 86850; 86900; 86901; 85025; 88307; J0330; J0690; J1100; J2371; J2405; J2704

== ENCOUNTER 2024-04-05 13:44 | Outpatient (REF) | payer MEDICAID, SELFPAY ==
--- NOTE | 2024-04-05 13:30 | PAPFT_PTH ---
PATIENT: Deidre Harkins LOC: [facility] U#:[id number] AGE/SX: 39/F ROOM: RE04/05/[address]: Radha Lamar : 1985 BED: DIS: 04/05/2024 SPEC #: [id number] RECD: 04/05/24 18:16 STATUS: TEJAL REQ #: [id number] GWEN: 04/05/24 13:[address]: Radha Lamar DEPT: [facility] Cytology RECD BY: Kathy Goode ENTERED: 04/05/24 18:16 SP TYPE: PAPFT OTHR DR: Ashu Hills Tissues: 1 - CX/ENDOCX FOR PAP SMEARS Procedures: PAP THIN PREP/[facility] Screening HPV DNA PROBE Comments: [id number] (HPV 16 & 18/45)
== END 2024-04-05 13:45 | disposition home or self-care (01) ==
LOC: LBN 13:44
PROVIDERS: PCP Neuromusculoskeletal Medicine & OMM; Visit Provider Advanced Practice Midwife
DX: Z39.2 Encounter for routine postpartum follow-up (principal)
CPT/HCPCS: 88142; 87624

== ENCOUNTER 2024-05-27 14:13 | Outpatient (REF) | payer MEDICAID, SELFPAY | END 2024-05-27 14:14 | disposition home or self-care (01) | LOC: LBN 14:13 | PROVIDERS: PCP Neuromusculoskeletal Medicine & OMM; Visit Provider Obstetrics & Gynecology | DX: N61.1 Abscess of the breast and nipple (principal) | CPT/HCPCS: 87077; 87070; 87205 ==

== ENCOUNTER 2024-06-23 07:27 | Observation (INO) | payer MEDICAID, SELFPAY ==
[2024-06-23] VITALS (14 sets, daily range): BP systolic 107–119; BP diastolic 60–66; PULSE 77–128; RESP 14–18; TEMP 36–39.3; O2SAT 88–97
--- NOTE | 2024-06-23 07:30 | DI.RAD_ITS ---
Exam(s) XR CHEST 2V PA LATERAL EXAM: XR CHEST 2V PA LATERAL CLINICAL HISTORY: Eval PNA TECHNIQUE: 2D digital imaging was performed of the chest. Two images were obtained. PA and lateral views were obtained. COMPARISON: CR ABD FLAT UPRIGHT PA CHEST from 02/08/2017 FINDINGS: MEDIASTINUM: Normal. HEART: Normal. PULMONARY VASCULATURE: Normal. LUNGS: There is a right lower lobe infiltrate. The left lung is clear. PLEURAL SPACE: No pleural effusion or pneumothorax. BONE:Within normal limits for the patient's age. OTHER FINDINGS:Normal. IMPRESSION: Right lower lobe pneumonia. DATA REPOSITORY: RADIATION DOSE DELIVERED:
--- NOTE | 2024-06-23 07:48 | ED.GENADUL_ITS ---
Discharge Plan Disposition Patient Disposition: Admit to [facility] Condition: Stable Discharge Details Clinical Impression: Right lower lobe pneumonia Admit Date/Time: 06/23/24 09:54 Admit Provider: Jc Guadalupe Attending Provider: Jc Guadalupe Primary Care Provider: Ashu Hills ED Provider: Nury Wilson General Mode of arrival: ambulatory . Date/Time Provider Initiated Documentation: 06/23/24 07:33 . Limitations to Documentation: no limitations . Information obtained by: patient and old records reviewed . HPI Narrative: HPI: This is a 39-year-old female patient, 4 months , who is presenting for evaluation of shortness of breath, cough, and fever. The patient reports that for the last 3 to 4 days she has had an upper respiratory illness, states that she is largely been staying in bed and thinks that she now has developed a pneumonia. She had a temperature at home to a Tmax of 104 last night, has been taking NyQuil with some improvement of her temperatures. Last dose of antipyretics was at bedtime last night. She reports that she has been coughing but has not been bringing up any sputum, feels nauseated and has had a few episodes of emesis, does feel like she has been able to maintain her hydration otherwise. No diarrhea. The patient is breast-feeding, states that she brought a pump, had to take antibiotics about a month ago for a breast abscess. Exam: Gen: Awake and alert, appears unwell HEENT: Non-icteric sclera, no conjunctival injection, posterior pharynx without erythema, exudate, asymmetry Neck: Supple Lungs: No apparent respiratory distress, normal respiratory effort. Lung sounds with rhonchi appreciated throughout but most prominent in the right base., Heart with tachycardic rate but regular rhythm CV: Appears well perfused heart with tachycardic rate but regular rhythm Abdomen: Non-distended, soft, nontender MSK: Moves 4 extremities without apparent limitation in ROM Skin: Visualized skin without rashes, cyanosis. Neuro: Normal Gait, no obvious focal deficits or facial asymmetry. Speaks in full, clear sentences. Psych: Appropriate for situation. MDM: This is a 39-year-old female patient presenting for evaluation of fever and respiratory illness. My differential includes but is not limited to rapid upper respiratory viral infection, pneumonia, bronchitis. Certainly considered other infectious etiologies of fever such as UTI, meningitis/encephalitis, bacteremia. Considered electrolyte derangement, kidney injury and dehydration. No evidence of fluid overload to suggest pulmonary edema or pleural effusion, no evidence for reactive airway disease exacerbation or pneumothorax on physical examinat ion. Will obtain laboratory studies to include COVID and influenza swab, CBC, CMP, magnesium, Pro-Jean-Pierre. I will obtain a chest x-ray, provide the patient with a dose of Tylenol as well as Zofran for symptomatic management. ED Course: I independently interpreted the laboratory studies, which show no significant leukocytosis, anemia, or thrombocytopenia. The chemistry panel is without evidence of electrolyte abnormality, kidney dysfunction, or liver injury, though the patient does have a very borderline elevated bilirubin and AST. Pro-Jean-Pierre is low, COVID and influenza testing negative. Independently interpreted the patient's x-ray, which shows right lower lobe pneumonia. I provided her with her first dose of ceftriaxone and azithromycin by IV as the patient is still having difficulty tolerating oral fluids due to her nausea. I did provide her with a small bolus of IV fluids, 500 cc, and noted an improvement with her tachycardia. She did have a decrease in her fever and received a dose of ibuprofen. I am concerned for the patient's ability to tolerate orals in the outpatient environment, and though her laboratory studies look well she herself remains diaphoretic and ill-appearing. I obtained a lactate and blood cultures, and believe this patient would benefit from a course of intravenous antibiotics and observation admission. Lactate was low at 0.5, patient did develop a mild hypoxia and was placed on a small amount of oxygen by nasal cannula. She was graciously accepted to the hospitalist service for her right lower lobe pneumonia, all further care per the admitting team. Patient remained hemodynamically improved while under my care. Nury Wilson MD Related Data Home Medications ?Medication ?Instructions ?Recorded ?Confirmed buprenorphine 12 mg-naloxone 3 mg 1 film sublingual DAILY 02/23/24 06/23/24 sublingual film (Suboxone) buprenorphine 8 mg-naloxone 2 mg 1 film sublingual DAILY 02/23/24 06/23/24 sublingual film (Suboxone) ibuprofen 600 mg tablet 600 mg PO Q6H PRN pain #10 tabs 02/26/24 06/23/24 metoclopramide HCl 10 mg tablet 10 mg PO Q6H PRN low breastmilk 05/09/24 06/23/24 (Reglan) production #56 tabs gabapentin 800 mg tablet 800 mg PO TID 06/23/24 06/23/24 pregabalin 150 mg capsule 150 mg PO BID 06/23/24 06/23/24 Previous Rx's ?Medication ?Instructions ?Recorded ibuprofen 600 mg tablet 600 mg PO Q6H PRN pain #10 tabs 02/26/24 metoclopramide HCl 10 mg tablet 10 mg PO Q6H PRN low breastmilk 05/09/24 (Reglan) production #56 tabs Allergies Allergy/AdvReac Type Severity Reaction Status Date / Time No Known Drug Allergies Allergy Unknown Verified 06/23/24 07:36 General Stated Complaint: RespSymp JEROMY: 3 Course Vital Signs Vital signs: Vital Signs Temperature 39.3 C H 06/23/24 07:31 Pulse 128 H 06/23/24 07:31 Respiratory Rate 18 06/23/24 07:31 Blood Pressure 117/61 06/23/24 07:31 Pulse Oximetry 91 L 06/23/24 07:31 Temperature 39.3 C H 06/23/24 07:35 Temperature Source Oral 06/23/24 07:35 Pulse 128 H 06/23/24 07:35 Respiratory Rate 18 06/23/24 07:35 Respiratory Effort Non-Labored, Short of Breath 06/23/24 07:35 Blood Pressure 117/61 06/23/24 07:35 Pulse Oximetry 91 L 06/23/24 07:35 Pain Level 10 06/23/24 07:35 Lab/Test Results Lab/Test Results: Laboratory Tests Range/Units 06/23/24 07:39 COVID-19 Source Cancelled SARS-CoV-2 (PCR) Cancelled Influenza Type A (PCR) Cancelled Influenza Type B (PCR) Cancelled RSV (PCR) Cancelled Medical Decision Making Quality:SDOH Health Related Social Needs: No Data to Display PFSH All Active Problems (Updated 06/23/24 @ 09:45 by Nury Wilson MD) Right lower lobe pneumonia (Acute) Left breast abscess (Acute) Lactating mother (Acute) ADHD (Acute) Depression (Chronic) Anxiety (Chronic) Restless leg syndrome (Acute) Medical History (Updated 06/23/24 @ 09:45 by Nury Wilson MD) 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 Positive urine drug screen opiates 02/02/24 Surgical History (Updated 05/27/24 @ 17:06 by Litzy Patel MD) History of D&C 02/23/24 for retained placenta. Previous section (07/06/13) section (07/14/08) 40w LTCS for arrest of descent Family History Father Essential hypertension Hyperlipidemia Mother Fibromyalgia Social History Smoking/Tobacco Use Status: Current every day Tobacco: How many years used: 10 Quit status: has quit before Smoking risk assessment performed?: Yes Alcohol Intake: never Drug use: Never Household members: other Details: children: Jeanmarie Terrazas Orion Housing: apartment Do you feel safe at home: Yes Do you feel safe in your relationship?: Yes Female Reproductive History Menstrual Age of Menarche: 13 Duration of menses: 3-5 days control method: none History History 7 Para 5 Hx # Term Pregnancies 3 Multiple births 0 Hx # Pregnancies 0 Ectopic pregnancies 0 AB induced Hx Number of Living Children AB spontaneous Past Pregnancies Del. Date GA/Weeks # Preg Succ Route Wgt Sex Labor Lgth Anesth esia Location Prov Complic Unknown Unknown 07/14/08 40 No EP o ther 07/06/13 No vaginal Male CNM 12/26/14 No Female 9 hrs CNM 09/26/18 40 No vaginal 3005.049 g Male Jodi Garcia CNM 02/23/24 38 Yes vaginal 2211.263 g Female Mireille Lamar CNM Delivery Date: Last Updated by: Radha Lamar CNM SAB Delivery Date: Last Updated by: Radha Lamar CNM SAB Delivery Date: 07/14/08 Last Updated by: Radha Lamar CNM arrest of descent Delivery Date: 07/06/13 Last Updated by: Radha Lamar CNM , retained placenta - removed under anesthesia Delivery Date: 09/26/18 Last Updated by: Erika Santana Pecipitous delivery, Arrived in active labor, SROM clear fluid within 15 minutes of arrival and head seen on perineum. Controlled delivery with snug nuchal cord,. Delivery Date: 02/23/24 Last Updated by: Litzy Patel MD [facility] Precip[facility] , retained placenta with D&C
[2024-06-23 07:58] LABS: Abs Immature Grans 0.02 10^3/uL (0.0-0.06); Absolute Basophil Count 0.01 10^3/uL (0.0-0.2); Absolute Lymphocyte Count 0.75 10^3/uL (1.2-3.4); Absolute Monocyte Count 0.43 10^3/uL (0.1-0.8); Absolute Neutrophil Count 5.35 10^3/uL (1.2-6.7); Basophils % 0.2 %; HCT 42.6 % (36.0-46.0); HGB 14.2 g/dL (11.2-15.7); Immature Grans % 0.3 %; Lymphocytes % 11.4 %; MCHC 33.3 % (32.0-36.0); MCV 84 fL (80-95); MPV 9.7 fL (8.0-11.0); Monocytes % 6.6 %; Neutrophils % 81.5 %; Platelet Count 135 10^3/uL (130-400); RBC 5.07 10^6/uL (3.93-5.22); RDW 15.9 % (11.7-14.6); RDW-SD 49.1 fL; WBC 6.56 10^3/uL (4.4-10.8)
[2024-06-23] MEDS: Acetaminophen 500 MG TAB 1000 MG PO (08:10)
[2024-06-23] MEDS: Ondansetron 4 MG/2 ML VIAL IVP (08:11)
[2024-06-23 08:14] LABS: ALT 58 U/L (14-59); AST 65 U/L (15-37); Albumin 3.7 g/dL (3.4-5.0); Alkaline Phosphatase 81 U/L (46-116); Anion Gap 10.5 mmol/L (3-11); BUN 14 mg/dL (7-18); Bilirubin, Total 1.01 mg/dL (0.2-1.0); CO2 27.5 mmol/L (21.0-32.0); CREATININE 0.7 mg/dL (0.55-1.02); Calcium 8.4 mg/dL (8.5-10.1); Chloride 98 mmol/L (98-107); Estimated GFR 114.16 (mL/min/1.73m2); Glucose 136 mg/dL (74-106); Magnesium 1.8 mg/dL (1.8-2.4); Potassium 3.7 mmol/L (3.5-5.1); Sodium 136 mmol/L (136-145); Total Protein 7.8 g/dL (6.4-8.2)
[2024-06-23] MEDS: Normal Saline Flush 10 ML SYR IVP ×5 (08:15→21:00)
[2024-06-23 09:13] LABS: Procalcitonin < 0.10 ng/mL
--- NOTE | 2024-06-23 09:40 | HPE_ITS ---
Date of service: 06/23/24 Time of Service: 09:55 Assessment and Plan Assessment and plan (1) Sepsis due to pneumonia: Status: Acute Assessment and plan: Sepsis: HR 128, temp 39.3, source RLL pneumonia Will continue Ceftriaxone IV and Azithromycin IV Strep pneumoniae and mycoplasma pneumoniae ordered Fluvid ordered Mucinex IS (2) Right lower lobe pneumonia: Status: Acute Assessment and plan: As above (3) Lactating mother: Status: Acute (4) Anxiety: Status: Chronic Assessment and plan: On home dose Lyrica patient mentioned having discuss risk for breasfeeding and Lyrica with PCP,had stopped it during and just restarted (5) Restless leg syndrome: Status: Acute Assessment and plan: On home dose neurotin (6) Encounter for monitoring Suboxone maintenance therapy: Status: Acute Assessment and plan: Home dose suboxone ongoing (7) On deep vein thrombosis (DVT) prophylaxis: Status: Acute Assessment and plan: SENDY's Discussed with Dr. Guadalupe History of Present Illness History of Present Illness Chief Complaint: Shortness of breath cough and fever Narrative: This 39-year-old female patient, 4-month , lactating for breast- feeding with past medical history of ADHD, anxiety, depression, RLS presented to the ED at [facility] for evaluation of shortness of breath, cough and fever. On arrival to the ED the patient was tachycardic at 128, saturation of 91% on room air, measured temperature of 39.3 Patient reported not feeling well with flulike symptoms including coughing, body aches, chills, night sweats since Thursday and that her son had been treated for walking pneumonia and finished his course of antibiotic yesterday. Patient reported Tmax of 104, dizziness, chest pain with deep breathing, decreased urine output, nausea and decreased oral intake. The patient denied hemoptysis, emesis, or dysuria. Workup in the ED was significant for the absence of leukocytosis, chemistry was unremarkable. Chest x-ray showed right lower lobe pneumonia. In the ED, treatment was initiated with IV ceftriaxone and IV azithromycin. The patient was admitted to the medical surgical floor by the hospitalist team for evaluation and management of sepsis due to community-acquired pneumonia. When seen the patient confirmed her full code status.Patient takes suboxone in the AM twice a couple of hours apart and confirmed having discussed links between her home meds (such as lyrica) and breast feeding with her PCP. Also intends to dump the milk pumped during the stay. Review of Systems All systems reviewed & are unremarkable except as noted in HPI and below PFSH All Active Problems (Updated 06/23/24 @ 12:48 by Francisca Cardona APRN) Encounter for monitoring Suboxone maintenance therapy (Acute) On deep vein thrombosis (DVT) prophylaxis (Acute) Sepsis due to pneumonia (Acute) Right lower lobe pneumonia (Acute) Left breast abscess (Acute) Lactating mother (Acute) ADHD (Acute) Depression (Chronic) Anxiety (Chronic) Restless leg syndrome (Acute) Medical History (Updated 06/23/24 @ 12:48 by Francisca Cardona APRN) 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 Positive urine drug screen opiates 02/02/24 Surgical History (Updated 05/27/24 @ 17:06 by Litzy Patel MD) History of D&C 02/23/24 for retained placenta. Previous section (07/06/13) section (07/14/08) 40w LTCS for arrest of descent Family History Father Essential hypertension Hyperlipidemia Mother Fibromyalgia Social History Smoking/Tobacco Use Status: Current every day Tobacco: How many years used: 10 Quit status: has quit before Smoking risk assessment performed?: Yes Alcohol Intake: never Drug use: Never Household members: other Details: children: Mk, Jeanmarie, Arcadio Housing: apartment Do you feel safe at home: Yes Do you feel safe in your relationship?: Yes Female Reproductive History Menstrual Age of Menarche: 13 Duration of menses: 3-5 days control method: none History History 2 7 Para 5 Hx # Term Pregnancies 3 Multiple births 0 Hx # Pregnancies 0 Ectopic pregnancies 0 AB induced Hx Number of Living Children AB spontaneous Past Pregnancies Del. Date GA/Weeks # Preg Succ Route Wgt Sex Labor Lgth Anesth esia Location Prov Complic Unknown Unknown 07/14/08 40 No EP o ther 07/06/13 No vaginal Male CNM 12/26/14 No Female 9 hrs CNM 09/26/18 40 No vaginal 3005.049 g Male Jodi Garcia CNM 02/23/24 38 Yes vaginal 2211.263 g Female Mireille Lamar CNM Delivery Date: Last Updated by: Radha Lamar CNM SAB Delivery Date: Last Updated by: ANUSHA Chisholm Delivery Date: 07/14/08 Last Updated by: Radha Lamar CNM arrest of descent Delivery Date: 07/06/13 Last Updated by: Radha Lamar CNM , retained placenta - removed under anesthesia Delivery Date: 09/26/18 Last Updated by: Erika Santana Pecipitous delivery, Arrived in active labor, SROM clear fluid within 15 minutes of arrival and head seen on perineum. Controlled delivery with snug nuchal cord,. Delivery Date: 02/23/24 Last Updated by: Litzy Patel MD PNC at [facility] Precipitous , retained placenta with D&C Meds Allergies and Home Medications Allergies Allergy/AdvReac Type Severity Reaction Status Date / Time No Known Drug Allergies Allergy Unknown Verified 06/23/24 07:36 Home Medications ?Medication ?Instructions ?Recorded ?Confirmed ?Type buprenorphine 12 mg-naloxone 3 mg 1 film sublingual DAILY 02/23/24 06/23/24 History sublingual film (Suboxone) buprenorphine 8 mg-naloxone 2 mg 1 film sublingual DAILY 02/23/24 06/23/24 History sublingual film (Suboxone) ibuprofen 600 mg tablet 600 mg PO Q6H PRN pain #10 tabs 02/26/24 06/23/24 Rx metoclopramide HCl 10 mg tablet 10 mg PO Q6H PRN low breastmilk 05/09/24 06/23/24 Rx (Reglan) production #56 tabs gabapentin 800 mg tablet 800 mg PO TID 06/23/24 06/23/24 History pregabalin 150 mg capsule 150 mg PO BID 06/23/24 06/23/24 History Exam Narrative Exam Narrative: Constitutional The patient is sitting in bed without acute distress c/o body aches HENMT: Facial structures with normal appearance Eyes: Well aligned Neuro:alert and oriented to self, person, place, time and situation. No neurological focal deficit Resp: shallow resp pattern, unlabored breathing, clear lung bilaterally, decrease right base with fine crackles Cardio: regular rhythm, S1, S2, no murmur GI: Abdomen is not distended, soft and non tender, bowel sounds are present : Negative Costovertebral angle tenderness Back/spine/Pelvis: No back tenderness, normal alignment Integumentary: No skin lesions or rash seen on exposed skin Extremities: strength 5/5 to bilateral lower and upper extremities Psych: RASS 0, congruent mood and normal affect. Results Labs 06/23/24 07:50 06/23/24 07:50 Labs: Laboratory Results - last 24 hr 06/23/24 06/23/24 07:39 07:50 WBC 6.56 RBC 5.07 Hgb 14.2 Hct 42.6 MCV 84 MCH 28.0 MCHC 33.3 RDW 15.9 H Plt Count 135 MPV 9.7 Immature Gran % 0.3 Neutrophils % 81.5 Lymphocytes % 11.4 Monocytes % 6.6 Eosinophils % 0.0 Basophils % 0.2 Nucleated RBC % 0.0 Absolute Neutrophils 5.35 Absolute Lymphocytes 0.75 L Absolute Monocytes 0.43 Absolute Eosinophils 0.00 Absolute Basophils 0.01 Sodium 136 Potassium 3.7 Chloride 98 Carbon Dioxide 27.5 Anion Gap 10.5 BUN 14 Creatinine 0.7 Est GFR (CKD-EPI 2020) 114.16 Glucose 136 H Calcium 8.4 L Magnesium 1.8 Total Bilirubin 1.01 H AST 65 H ALT 58 Alkaline Phosphatase 81 Total Protein 7.8 Albumin 3.7 Procalcitonin < 0.10 COVID-19 Source Cancelled SARS-CoV-2 (PCR) Cancelled Influenza Type A (PCR) Cancelled Influenza Type B (PCR) Cancelled RSV (PCR) Cancelled Last Vital Signs Temp 38.3 C H 06/23/24 09:06 Pulse 99 H 06/23/24 09:06 Resp 16 06/23/24 09:06 BP 107/60 06/23/24 09:06 Pulse Ox 91 L 06/23/24 07:35 Time Spent Time spent with Patient: >75 minutes Time was spent: preparing to see the patient(eg.review tests), obtaining and/or reviewing separately otained hiistory, ordering medications,tests, procedures, referring, communicating with other health caregiver assisted living, indepentently interpreting results, counseling the patient and care coordination
[2024-06-23] MEDS: Normal Saline 500 ML IV (09:47)
[2024-06-23] MEDS: Ibuprofen 600 MG TAB PO (09:52)
[2024-06-23] MEDS: cefTRIAXone 1 GM/50 ML BAG IVPB ×2 (10:00→13:03)
[2024-06-23 10:03] LABS: Lactate 0.5 mmol/L (0.6-1.4)
--- NOTE | 2024-06-23 10:52 | W.PC.ACHO ---
Registration Status: Primary Language: Preferred Language: ED Information & Data Chief Complaint RespSymp 06/23/24 07:52 Triage Note Pt believes she has 06/23/24 07:31 pneumonia, not eating or drinking over the past couple of days- not feeling well for 3-4 days, body aches, fevers 104.2 this morning, nothing for fever/ pain this morning Medical / Surgical History (Last Updated 05/27/24 @ 13:58 by Litzy Patel MD) 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 Positive urine drug screen (Last Updated 05/27/24 @ 17:06 by Litzy Patel MD) History of D&C Previous section (07/06/13) section (07/14/08) Most Recent Vital Signs Temperature 37.3 C 06/23/24 10:34 Temperature Source Oral 06/23/24 10:22 Pulse 82 06/23/24 10:34 Pulse Rhythm Regular 06/23/24 10:22 Respiratory Rate 14 06/23/24 10:34 Respiratory Effort Short of Breath 06/23/24 08:29 Respiratory Depth Normal 06/23/24 10:22 Blood Pressure 116/65 06/23/24 10:34 Blood Pressure Mean 79 06/23/24 10:24 Pulse Oximetry 95 06/23/24 10:34 Oxygen Delivery Method Nasal Cannula 06/23/24 10:25 Oxygen Flow Rate 2 06/23/24 10:25 Pain Level 7 06/23/24 10:34 Allergies No Known Drug Allergies Allergy (Verified 06/23/24 07:36) Unknown Precautions Isolation Standard precaution 06/23/24 07:35 Active Medications Generic Name Dose Route Start Last Admin Trade Name Freq PRN Reason Stop Dose Admin Sodium Chloride 0 ml 06/23/24 08:30 06/23/24 08:32 Normal Saline Flush 10 Ml Syr IVP Not Given BID GRACIE Sodium Chloride 0 ml 06/23/24 07:39 06/23/24 08:15 Normal Saline Flush 10 Ml Syr IVP 10 ml PRN PRN Administration IV IV Catheter Type [Left Saline Lock Antecubital] IV Catheter Gauge [Left 20 Antecubital] Diet Orders Category Date Time Status Regular/Normal [DIET] Nutrition 06/23/24 Lunch Active Diagnostics 06/23/24 06/23/24 06/23/24 Range/Units 09:58 07:50 07:39 WBC 6.56 (4.4-10.8) 10^3/uL RBC 5.07 (3.93-5.22) 10^6/uL Hgb 14.2 (11.2-15.7) g/dL Hct 42.6 (36.0-46.0) % MCV 84 (80-95) fL MCH 28.0 (27.0-33.0) pg MCHC 33.3 (32.0-36.0) % RDW 15.9 H (11.7-14.6) % Plt Count 135 (130-400) 10^3/uL MPV 9.7 (8.0-11.0) fL Immature Gran % 0.3 % Neutrophils % 81.5 % Lymphocytes % 11.4 % Monocytes % 6.6 % Eosinophils % 0.0 % Basophils % 0.2 % Nucleated RBC % 0.0 (0.0-0.3) % Absolute Neutrophils 5.35 (1.2-6.7) 10^3/uL Absolute Lymphocytes 0.75 L (1.2-3.4) 10^3/uL Absolute Monocytes 0.43 (0.1-0.8) 10^3/uL Absolute Eosinophils 0.00 (0.0-0.7) 10^3/uL Absolute Basophils 0.01 (0.0-0.2) 10^3/uL VBG Lactate 0.5 L (0.6-1.4) mmol/L Sodium 136 (136-145) mmol/L Potassium 3.7 (3.5-5.1) mmol/L Chloride 98 (98-107) mmol/L Carbon Dioxide 27.5 (21.0-32.0) mmol/L Anion Gap 10.5 (3-11) mmol/L BUN 14 (7-18) mg/dL Creatinine 0.7 (0.55-1.02) mg/dL Est GFR (CKD-EPI 2020) 114.16 (mL/min/1.73m2) Glucose 136 H (74-106) mg/dL Calcium 8.4 L (8.5-10.1) mg/dL Magnesium 1.8 (1.8-2.4) mg/dL Total Bilirubin 1.01 H (0.2-1.0) mg/dL AST 65 H (15-37) U/L ALT 58 (14-59) U/L Alkaline Phosphatase 81 (46-116) U/L Total Protein 7.8 (6.4-8.2) g/dL Albumin 3.7 (3.4-5.0) g/dL Procalcitonin < 0.10 ng/mL COVID-19 Source Cancelled SARS-CoV-2 (PCR) Cancelled Influenza Type A (PCR) Cancelled Influenza Type B (PCR) Cancelled RSV (PCR) Cancelled 06/23/24 09:58 Blood Culture - Pending Blood 06/23/24 09:50 Blood Culture - Pending Blood Intake and Output - 24 Hour Total 06/23/24 07:27 thru 06/23/24 10:30 Intake Total 60 Balance 60 Weight 63.503 kg Intake: IV 60 Falls Risk Assessment Contributing Factors No Factors 06/23/24 07:41 Fall Total Score 0 06/23/24 07:41 Level of Risk Standard/Low Risk 06/23/24 07:41 v v v v v v v v v Sending and/or Receiving Nurses: Please use comment section below to note any information pertinent to the patient hand-off not included above. Information / Comments: Report received from: Seema GARAY
[2024-06-23] MEDS: AZITHROMYCIN 500 MG in Normal Saline 250 ML 250 MG IVPB (11:12)
[2024-06-23] MEDS: Buprenorphine/Naloxone 8 mg/2 mg FILM 1 EACH SL (13:03)
--- NOTE | 2024-06-23 13:22 | PHA.REVIEW2 ---
Pharmacy Admission Review Admission Clinical Review Admission Pharmacy Review: Encounter for monitoring Suboxone maintenance therapy (Acute) On deep vein thrombosis (DVT) prophylaxis (Acute) Sepsis due to pneumonia (Acute) Right lower lobe pneumonia (Acute) Lactating mother (Acute) Restless leg syndrome (Acute) No Known Drug Allergies Allergy (Verified 06/23/24 07:36) Unknown Resuscitation Status Full Code Height 5 ft 8 in Weight 63.503 kg Pharmacy Admission Review Renal Dosing Renal Dosing: BUN 14 mg/dL (7-18) 06/23/24 07:50 Creatinine 0.7 mg/dL (0.55-1.02) 06/23/24 07:50 Medications needing adjustments: Reviewed (CrCl 110.31 mL/min) List of meds needing interventions: Current medications are okay Anticoagulation Anticoagulation: Hgb 14.2 g/dL (11.2-15.7) 06/23/24 07:50 Hct 42.6 % (36.0-46.0) 06/23/24 07:50 Plt Count 135 10^3/uL (130-400) 06/23/24 07:50 Creatinine 0.7 mg/dL (0.55-1.02) 06/23/24 07:50 DVT Prophylaxis: Reviewed (TEDs) Relevant Labs Relevant Labs: Sodium 136 mmol/L (136-145) 06/23/24 07:50 Potassium 3.7 mmol/L (3.5-5.1) 06/23/24 07:50 Chloride 98 mmol/L (98-107) 06/23/24 07:50 Magnesium 1.8 mg/dL (1.8-2.4) 06/23/24 07:50 Electrolytes, C-Reactive P, ESR: Reviewed (glucose 136 at 0750) Cardiac Review BP, HR, EF%: Reviewed (HR and BP WNL) QTc Review QTc: Reviewed (No EKG on file) IV to PO Switch IV Medications: Reviewed (azithromycin, ceftriaxone, ketorolac and ondansetron) Home Meds Home Med List reviewed: Reviewed Relevent Home Meds Not ordered & why?: ibuprofen (PRN) Current Meds Current Medication Order Review: Intervened Comments: Added 2nd PRN to APAP and metoclopramide orders per pharmacy protocol Patient currently . Talked to provider about risks with Suboxone and pregabalin. Per patient will not dump breast milk while on these medications. Pharmacy Antibiotic Review Relevant Labs: Relevant Labs 06/23/24 07:50 Procalcitonin < 0.10 WBC 6.56 10^3/uL (4.4-10.8) 06/23/24 07:50 Procalcitonin < 0.10 ng/mL 06/23/24 07:50 Temperature 36.8 C 1055 Temperature 37.3 C 1034 Temperature 37.3 C 1022 Temperature 38.3 C 0906 Temperature 39.3 C 0735 Temperature 39.3 C 0731 Pharmacy Antibiotic Activity: C/S review and Reviewed, no change Comments: Patient is on azithromycin and ceftriaxone, day 1, for severe sepsis/CAP. Blood cultures are pending.
[2024-06-23] MEDS: Lactated Ringers 1,000 ML 100 ML IV ×2 (13:57→22:44)
[2024-06-23] MEDS: Gabapentin 800 MG TAB PO ×2 (14:04→21:00)
--- NOTE | 2024-06-23 17:02 | PDOC.CMIN ---
Date of service: 06/23/24 Time of Service: 17:02 Care Management Initial Assmt Initial Assessment Reason for Hospitalization: pneumonia Functional Status/Living Situation Patient Presentation: Deidre was admitted earlier today for SOB, fever and purple lips. She was found to have pneumonia and is currently still on IVF and IV abx. When CM met with Deidre, she was sitting up in bed, watching TV. She was pleasant and easily engaged. She stated that she is feeling a bit better than she was earlier in the day. Her fever is under control, and her breathing feels a bit better. She does c/o being very tired, and has been sleeping most of the day. Deidre has a 4month old daughter, and 5 older children who are home with her partner. 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 Medications Medication Management: No Issues/Barriers identified Advance Directives Advance Directives: Do you have an Advance Directive: N 12/22/12 16:26 AD On File at [facility]: N 12/22/12 16:26 Date Asked 06/23/24 06/23/24 07:31 AD Date Reviewed COLST On File at [facility] COLST Date Scanned Code Status Resuscitation Status Full Code Portal Pt does not currently have a portal and education provided: No Insurance Coverage/Financial Issues Insurance: Medicaid Financial Issues: denies Care Team Visit Care Team Role Provider Type [place] Primary Care Provider OSTEOPATHIC DOCTOR Nury Wilson MD Emergency Provider [facility] STAFF PHYSICIAN Jc Guadalupe MD Admit Provider [facility] STAFF PHYSICIAN Attending Provider Discharge Potential Discharge Needs: PCP F/U Appt Anticipated Barriers to Discharge: None Identified Patient/Family Education Needs: Review discharge instructions, discuss Ask Me Three Transportation: Private vehicle Plan: Anticipate that Deidre will be discharged home with no new services once she is medically stable. She will continue per her prescribed plan of care, and f/u with her PCP. She will transport in a private vehicle. CM will continue to follow. [facility] All Active Problems (Updated 06/23/24 @ 12:48 by Francisca Cardona APRN) Encounter for monitoring Suboxone maintenance therapy (Acute) On deep vein thrombosis (DVT) prophylaxis (Acute) Sepsis due to pneumonia (Acute) Right lower lobe pneumonia (Acute) Left breast abscess (Acute) Lactating mother (Acute) ADHD (Acute) Depression (Chronic) Anxiety (Chronic) Restless leg syndrome (Acute) Medical History (Updated 06/23/24 @ 12:48 by Francisca Cardona APRN) 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 Positive urine drug screen opiates 02/02/24 Surgical History (Updated 05/27/24 @ 17:06 by Litzy Patel MD) History of D&C 02/23/24 for retained placenta. Previous section (07/06/13) section (07/14/08) 40w LTCS for arrest of descent Family History Father Essential hypertension Hyperlipidemia Mother Fibromyalgia Social History Smoking/Tobacco Use Status: Current every day Tobacco: How many years used: 10 Quit status: has quit before Smoking risk assessment performed?: Yes Alcohol Intake: never Drug use: Never Household members: other Details: children: Jeanmarie Terrazas, Arcadio Housing: apartment Do you feel safe at home: Yes Do you feel safe in your relationship?: Yes Female Reproductive History Menstrual Age of Menarche: 13 Duration of menses: 3-5 days control method: none History History 7 Para 5 Hx # Term Pregnancies 3 Multiple births 0 Hx # Pregnancies 0 Ectopic pregnancies 0 AB induced Hx Number of Living Children AB spontaneous Past Pregnancies Del. Date GA/Weeks # Preg Succ Route Wgt Sex Labor Lgth Anesthesia Location Prov Complic Unknown Unknown 07/14/08 40 No EP other 07/06/13 No vaginal Male CNM 12/26/14 No Female 9 hrs CNM 09/26/18 40 No vaginal 3005.049 g Male Jodi Garcia CNM 02/23/24 38 Yes vaginal 2211.263 g Female Radha Lamar CNM Delivery Date: Last Updated by: Radha Lamar CNM SAB Delivery Date: Last Updated by: Radha Lamar CNM SAB Delivery Date: 07/14/08 Last Updated by: Radha Lamar CNM arrest of descent Delivery Date: 07/06/13 Last Updated by: Radha Lamar CNM , retained placenta - removed under anesthesia Delivery Date: 09/26/18 Last Updated by: Erika Santana Pecipitous delivery, Arrived in active labor, SROM clear fluid within 15 minutes of arrival and head seen on perineum. Controlled delivery with snug nuchal cord,. Delivery Date: 02/23/24 Last Updated by: Litzy Patel MD PNC at [facility] Precipitous , retained placenta with D&C Readmission Within the Past 30 Days Yes or No: No SDOH(Care Management) Screening Will the Patient Participate in the Screening?: Yes Do you worry about having a steady place to live?: no In the past 12 months, have you had to go without electric, gas, oil or water in your home?: no Have you or anyone in your house had to go without enough food to eat?: no Has lack of transportation kept you from medical appointments or from doing things needed for daily living?: no Has anyone in your support network made you feel unsafe for any reason?: no
[2024-06-23] MEDS: Acetaminophen 325 MG TAB 650 MG PO (21:00)
[2024-06-23] MEDS: Pregabalin 150 MG CAP PO (21:00)
[2024-06-23] MEDS: guaiFENesin 600 MG TABCR PO (21:00)
[2024-06-23] MEDS: Ketorolac 15 MG/ML VIAL IVP (21:16)
[2024-06-24] VITALS (16 sets, daily range): BP systolic 97–135; BP diastolic 48–74; PULSE 79–110; RESP 5–18; TEMP 37.5–38.7; O2SAT 92–97
[2024-06-24] MEDS: Ketorolac 15 MG/ML VIAL IVP (03:38)
[2024-06-24] MEDS: Albuterol/Ipratropium 3 ML UPD VIAL UPD (03:58)
[2024-06-24] MEDS: Acetaminophen 325 MG TAB 650 MG PO ×2 (06:20→12:37)
[2024-06-24 06:48] LABS: Abs Immature Grans 0.02 10^3/uL (0.0-0.06); Absolute Basophil Count 0.01 10^3/uL (0.0-0.2); Absolute Eosinophil Count 0.01 10^3/uL (0.0-0.7); Absolute Lymphocyte Count 0.88 10^3/uL (1.2-3.4); Absolute Monocyte Count 0.25 10^3/uL (0.1-0.8); Absolute Neutrophil Count 2.64 10^3/uL (1.2-6.7); Basophils % 0.3 %; Eosinophils % 0.3 %; HCT 37.4 % (36.0-46.0); HGB 12.2 g/dL (11.2-15.7); Immature Grans % 0.5 %; Lymphocytes % 23.1 %; MCH 27.8 pg (27.0-33.0); MCHC 32.6 % (32.0-36.0); MCV 85 fL (80-95); MPV 10.7 fL (8.0-11.0); Monocytes % 6.6 %; Neutrophils % 69.2 %; Platelet Count 101 10^3/uL (130-400); RBC 4.39 10^6/uL (3.93-5.22); RDW 15.9 % (11.7-14.6); RDW-SD 50.2 fL; WBC 3.81 10^3/uL (4.4-10.8)
[2024-06-24 07:35] LABS: Anion Gap 6.4 mmol/L (3-11); BUN 17 mg/dL (7-18); CO2 28.6 mmol/L (21.0-32.0); CREATININE 0.8 mg/dL (0.55-1.02); Calcium 8.3 mg/dL (8.5-10.1); Chloride 99 mmol/L (98-107); Estimated GFR 97.26 (mL/min/1.73m2); Glucose 108 mg/dL (74-106); Potassium 3.7 mmol/L (3.5-5.1); Sodium 134 mmol/L (136-145)
[2024-06-24] MEDS: Buprenorphine/Naloxone 8 mg/2 mg FILM 1 EACH SL (08:57)
[2024-06-24] MEDS: Gabapentin 800 MG TAB PO (08:57)
[2024-06-24] MEDS: guaiFENesin 600 MG TABCR PO (08:57)
[2024-06-24] MEDS: Pregabalin 150 MG CAP PO (08:57)
[2024-06-24] MEDS: Buprenorphine/Naloxone 12 mg/3 mg FILM 1 EACH SL (08:57)
[2024-06-24] MEDS: cefTRIAXone 2 GM/50 ML BAG IVPB (09:47)
[2024-06-24] MEDS: AZITHROMYCIN 500 MG in Normal Saline 250 ML 250 MG IVPB (10:51)
--- NOTE | 2024-06-24 11:24 | DSE_ITS ---
Date of service: 06/24/24 Time of Service: 11:27 DS: Diagnosis Discharge Diagnosis (1) Sepsis due to pneumonia: Status: Acute (2) Right lower lobe pneumonia: Status: Acute (3) Lactating mother: Status: Acute (4) Anxiety: Status: Chronic (5) Restless leg syndrome: Status: Acute (6) Encounter for monitoring Suboxone maintenance therapy: Status: Acute Discharge Plan Disposition Patient Disposition: Home Condition: Improving Discharge Details Reason For Visit: sepsis, right lower lobe CAP Admit Date/Time: 06/23/24 09:54 Admit Provider: Jc Guadalupe Attending Provider: Jc Guadalupe Primary Care Provider: Ashu [facility] Hospital Course Hospital Course: This is a 39-year-old female patient presented to the emergency department with fever cough shortness of breath found to have a right-sided pneumonia. She was placed on azithromycin and ceftriaxone and admitted to the the medical surgical unit under hospitalist service. Overnight continued to have fever but hemodynamically remained stable. She is oxygenating in the low to mid 90s on room air and feeling somewhat improved from admission. She has received 2 doses of IV antibiotics and would like to be discharged to home. She is stable off oxygen and eating and drinking not at her baseline but taking adequate oral intake. Of note she is also breast-feeding a 4-month-old she has been pumping and dumping and will continue to do so until she is completed with her antibiotics. Blood cultures have been negative to date. She is being discharged home on cefpodoxime 200 mg twice daily for 5 more days to complete a 7-day course and azithromycin 500 mg daily for 3 more days to complete a 5-day course. Home Meds and New Rx's Prescriptions: New cefpodoxime 200 mg tablet 200 mg PO BID Qty: 10 0RF Rx Instructions: must administer with a meal/food azithromycin 500 mg tablet 500 mg PO DAILY Qty: 3 0RF Rx Instructions: 500 mg orally; Continued ibuprofen 600 mg tablet 600 mg PO Q6H PRN (Reason: pain) Qty: 10 0RF metoclopramide HCl [Reglan] 10 mg tablet 10 mg PO Q6H PRN (Reason: low breastmilk production) Qty: 56 1RF buprenorphine-naloxone [Suboxone] 12-3 mg film 1 film sublingual DAILY Patient Comments: PLACE ONE FILM UNDER THE TONGUE EVERY MORNING buprenorphine-naloxone [Suboxone] 8-2 mg film 1 film sublingual DAILY Patient Comments: PLACE ONE FILM UNDER THE TONGUE EVERY MORNING gabapentin 800 mg tablet 800 mg PO TID Patient Comments: TAKE ONE TABLET BY MOUTH THREE TIMES A DAY pregabalin 150 mg capsule 150 mg PO BID Patient Comments: TAKE ONE CAPSULE BY MOUTH TWICE A DAY Discharge Instructions Instructions: Community-acquired pneumonia in adults Additional Instructions: Complete your antibiotic course as directed starting tomorrow morning. The cefpodoxime you will take twice a day for 5 more days to complete a 7-day course and the azithromycin is once a day for 3 more days to complete a 5-day course. Push fluids to stay well-hydrated drinking greater than 8 glasses of water daily especially while breast-feeding Continue usual home medications as previously directed. Check with your human resources consultant for any questions or concerns. Continue cough deep breathing exercises as directed. Referrals: Ashu Hills [Primary Care Provider] - Activity:: Activity as Tolerated Equipment/Supplies:: No Equipment Needed Diet:: As Tolerated Discharge Orders Discharge Orders: Discharge Order (Routine); Ordered 06/24/24 Ordered By: Tiffanie Bro DS: Summary Time Spent with Patient providing and/or coordinating discharge services: Less than 30 minutes Status at Discharge Functional status at discharge: independent ambulation Overall status at discharge: patient is progressing back to baseline Mental Status: mental status grossly normal Speech and Movement: speech and movement normal Mood: congruent mood Affect: normal affect Quality:SDOH Health Related Social Needs: No Data to Display Exam Narrative Exam Narrative: Thin female of stated age appearing mildly ill but in no acute distress her head is atraumatic her eyes nonicteric noninjected EOMs intact oral mucosas slightly dry no oral exudates neck is supple with full range of motion cardiovascular regular rate and rhythm pulse in the 80s respirations are even and unlabored she did have coarse breath sounds in the right base occasional expiratory scattered wheeze faint abdomen is nontender moves all extremities equally no peripheral edema neurologic she is awake alert oriented no focal deficits psychiatric normal mood and affect Psych Mental Status: mental status grossly normal Speech and Movement: speech and movement normal Mood: congruent mood Affect: normal affect DS: Data Vitals/I&O Vitals and I&O: Vital Signs Temperature 37.7 C H 06/24/24 11:20 Temperature Source Tympanic 06/24/24 11:20 Pulse 88 06/24/24 11:20 Pulse Rhythm Regular 06/23/24 10:55 Respiratory Rate 16 06/24/24 11:20 Respiratory Effort Normal 06/23/24 10:55 Respiratory Depth Normal 06/23/24 10:55 Respiratory Pattern Normal 06/23/24 10:55 Blood Pressure 110/54 L 06/24/24 11:20 Blood Pressure Mean 79 06/23/24 10:24 Pulse Oximetry 96 06/24/24 11:20 Oxygen Delivery Method Nasal Cannula 06/24/24 11:20 Oxygen Flow Rate 1 06/24/24 11:20 Pain Level 2 06/24/24 11:20 Comment RN notified 06/24/24 11:20 Intake & Output 06/23/24 06/23/24 06/24/24 11:59 23:59 11:59 Intake Total 60 / 3562.784 5850.333 / 7431.765 5902 / 1410 Output Total 200 / 200 400 / 400 Balance 60 / 1495.653 2109.333 / 4947.216 7603 / 1010 Weight 63.503 kg Intake: IV 60 / 1441.022 1936.333 / 6114.947 2041 / 1050 Oral 300 / 300 360 / 360 Output: Urine 200 / 200 400 / 400 Other: Urine Color Yellow Light Tiffani Urine Appearance Clear Clear Comment reports voiding in toilet a few times. Pt is up independently to bathroom Data Completed and Pending Labs on day of discharge: Labs from last 24 hours 06/24/24 06/23/24 06/23/24 05:58 22:35 22:25 WBC 3.81 L RBC 4.39 Hgb 12.2 D Hct 37.4 MCV 85 MCH 27.8 MCHC 32.6 RDW 15.9 H Plt Count 101 L MPV 10.7 Immature Gran % 0.5 Neutrophils % 69.2 Lymphocytes % 23.1 Monocytes % 6.6 Eosinophils % 0.3 Basophils % 0.3 Nucleated RBC % 0.0 Absolute Neutrophils 2.64 Absolute Lymphocytes 0.88 L Absolute Monocytes 0.25 Absolute Eosinophils 0.01 Absolute Basophils 0.01 Sodium 134 L Potassium 3.7 Chloride 99 Carbon Dioxide 28.6 Anion Gap 6.4 BUN 17 Creatinine 0.8 Est GFR (CKD-EPI 2020) 97.26 Glucose 108 H Calcium 8.3 L Magnesium 2.0 COVID-19 Source SARS-CoV-2 (PCR) Influenza Type A (PCR) Influenza Type B (PCR) M. pneumoniae Source Pending M. pneumoniae (PCR) Pending RSV (PCR) Ur Strep pneumoniae Ag Pending 06/23/24 12:16 WBC RBC Hgb Hct MCV MCH MCHC RDW Plt Count MPV Immature Gran % Neutrophils % Lymphocytes % Monocytes % Eosinophils % Basophils % Nucleated RBC % Absolute Neutrophils Absolute Lymphocytes Absolute Monocytes Absolute Eosinophils Absolute Basophils Sodium Potassium Chloride Carbon Dioxide Anion Gap BUN Creatinine Est GFR (CKD-EPI 2020) Glucose Calcium Magnesium COVID-19 Source Cancelled SARS-CoV-2 (PCR) Cancelled Influenza Type A (PCR) Cancelled Influenza Type B (PCR) Cancelled M. pneumoniae Source M. pneumoniae (PCR) RSV (PCR) Cancelled Ur Strep pneumoniae Ag 06/23/24 09:58 Blood Blood Culture - Pending 06/23/24 09:50 Blood Blood Culture - Pending Preliminary micro results at discharge 06/23/24 09:58 Blood Culture - Pending Blood 06/23/24 09:50 Blood Culture - Pending Blood PFSH All Active Problems (Updated 06/23/24 @ 12:48 by Francisca Cardona APRN) Encounter for monitoring Suboxone maintenance therapy (Acute) On deep vein thrombosis (DVT) prophylaxis (Acute) Sepsis due to pneumonia (Acute) Right lower lobe pneumonia (Acute) Left breast abscess (Acute) Lactating mother (Acute) ADHD (Acute) Depression (Chronic) Anxiety (Chronic) Restless leg syndrome (Acute) Medical History (Updated 06/23/24 @ 12:48 by Francisca Cardona APRN) 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 Positive urine drug screen opiates 02/02/24 Surgical History (Updated 05/27/24 @ 17:06 by Litzy Patel MD) History of D&C 02/23/24 for retained placenta. Previous section (07/06/13) section (07/14/08) 40w LTCS for arrest of descent Family History Father Essential hypertension Hyperlipidemia Mother Fibromyalgia Social History Smoking/Tobacco Use Status: Current every day Tobacco: How many years used: 10 Quit status: has quit before Smoking risk assessment performed?: Yes Alcohol Intake: never Drug use: Never Household members: other Details: children: Jeanmarie Terrazas Orion Housing: apartment Do you feel safe at home: Yes Do you feel safe in your relationship?: Yes Female Reproductive History Menstrual Age of Menarche: 13 Duration of menses: 3-5 days control method: none History History 7 Para 5 Hx # Term Pregnancies 3 Multiple births 0 Hx # Pregnancies 0 Ectopic pregnancies 0 AB induced Hx Number of Living Children AB spontaneous Past Pregnancies Del. Date GA/Weeks # Preg Succ Route Wgt Sex Labor Lgth Anesth esia Location Prov Complic Unknown Unknown 07/14/08 40 No EP o ther 07/06/13 No vaginal Male ANUSHA 12/26/14 No Female 9 hrs VASQUEZM 09/26/18 40 No vaginal 3005.049 g Male Jodi Garcia CNM 02/23/24 38 Yes vaginal 2211.263 g Female Mireille Lamar CNM Delivery Date: Last Updated by: Radha Lamar CNM SAB Delivery Date: Last Updated by: Radha Lamar CNM SAB Delivery Date: 07/14/08 Last Updated by: Radha Lamar CNM arrest of descent Delivery Date: 07/06/13 Last Updated by: Radha Lamar CNM , retained placenta - removed under anesthesia Delivery Date: 09/26/18 Last Updated by: Erika Santana Pecipitous delivery, Arrived in active labor, SROM clear fluid within 15 minutes of arrival and head seen on perineum. Controlled delivery with snug nuchal cord,. Delivery Date: 02/23/24 Last Updated by: Litzy Patel MD P[facility] at [facility] Precipitous , retained placenta with D&C Time Spent with Patient Time Spent with Patient: <45 minutes Time was spent: preparing to see the patient(eg.review tests), obtaining and/or reviewing separately otained hiistory, ordering medications,tests, procedures, indepentently interpreting results and counseling the patient
[2024-06-24] MEDS: Albuterol HFA 8 GM 60 PUFF INH IH (11:49)
--- NOTE | 2024-06-24 16:15 | PDOC.CMDIS ---
Date of service: 06/24/24 Time of Service: 16:15 LACE Index Scoring Tool Questions: Length of Stay (in days): 1 Was the patient admitted via the E.D.?: Yes E.D. Visits: 1 Answers: Total Score: 5 Risk of Readmission: Low Risk Care Management Discharge Plan Reason for Hospitalization: pneumonia Discharge Plan: Deidre is discharged home today with new orders for IV abx. She reports feeling much better. She was given a return to work note to return with no restrictions as long as she is afebrile. Deidre will f/u with her PCP, and continue per her plan of care. She will transport home in a private vehicle. SDOH Health Related Social Needs: No Data to Display
[2024-06-26 16:07] LABS: Streptococcus Pneumoniae Ag, U Negative (Negative)
[2024-06-28 16:56] LABS: Specimen source sputum
[2024-06-29 12:02] LABS: Mycoplasma Pneumoniae PCR Positive (Negative)
== END 2024-06-24 17:09 | disposition home or self-care (01) ==
LOC: ER 09:45 → MS 10:44
PROVIDERS: Nurse Practitioner Acute Care; Admitting Provider Family Medicine; Emergency Provider Emergency Medicine; PCP Neuromusculoskeletal Medicine & OMM; Visit Provider Family Medicine
DX: A41.9 Sepsis, unspecified organism; J18.9 Pneumonia, unspecified organism; F41.9 Anxiety disorder, unspecified; G25.81 Restless legs syndrome; F90.9 Attention-deficit hyperactivity disorder, unspecified type; F32.A Depression, unspecified; Z39.1 Encounter for care and examination of lactating mother; F11.20 Opioid dependence, uncomplicated; Z79.899 Other long term (current) drug therapy; F17.210 Nicotine dependence, cigarettes, uncomplicated
CPT/HCPCS: 00123; 36415; 80048; 80053; 84145; 87040; 87637; 87798; 96365; 96366; 96367; 96375; 96376; 99285; J3490; 71046; 83605; 83735; 85025; 87581; 87899; 94640; 99223; 99239; G0378; J0456; J0696; J1885; J2405; J7620

== ENCOUNTER 2024-09-22 01:21 | Emergency (ER) | payer MEDICAID, SELFPAY ==
[2024-09-22 01:27] VITALS: BP 125/70; PULSE 88; RESP 16; TEMP 36.7; O2SAT 96
--- NOTE | 2024-09-22 01:28 | ED.GENADUL_ITS ---
Discharge Plan Disposition Patient Disposition: Home Condition: Good Discharge Details Clinical Impression: Encounter for wound re-check Primary Care Provider: Ashu Hills ED Provider: Ashu Holloway Home Meds and New Rx's Prescriptions: New chlorhexidine gluconate 0.12 % mouthwash 15 ml mucous membrane BID Qty: 120 0RF Continued ibuprofen 600 mg tablet 600 mg PO Q6H PRN (Reason: pain) Qty: 10 0RF buprenorphine-naloxone [Suboxone] 12-3 mg film 1 film sublingual DAILY Patient Comments: PLACE ONE FILM UNDER THE TONGUE EVERY MORNING buprenorphine-naloxone [Suboxone] 8-2 mg film 1 film sublingual DAILY Patient Comments: PLACE ONE FILM UNDER THE TONGUE EVERY MORNING gabapentin 800 mg tablet 800 mg PO TID Patient Comments: TAKE ONE TABLET BY MOUTH THREE TIMES A DAY pregabalin 150 mg capsule 150 mg PO BID Patient Comments: TAKE ONE CAPSULE BY MOUTH TWICE A DAY albuterol sulfate [Ventolin HFA] 90 mcg/actuation HFA aerosol inhaler 2 puff inhalation Q4H PRNQty: 6.7 0RF Discharge Instructions Additional Instructions: There is a small opening at the base of your tongue but no sign of infection currently. Recommend warm salt water rinse and spit after eating or drinking anything. Chlorhexidine rinse twice a day. Follow-up with dentist next week for recheck. May alternate acetaminophen with ibuprofen for pain. Return to ED for fever, increasing pain or swelling under the tongue, pain or swelling or redness in the neck, difficulty breathing, other concerns. HPI General Mode of arrival: ambulatory . Date/Time Provider Initiated Documentation: 09/22/24 01:27 . Limitations to Documentation: no limitations . Information obtained by: patient and RN notes reviewed . HPI Narrative: Patient presents to ED with complaint of some throbbing dental pain, dental work performed during the day with resulting laceration under the tongue. Patient reports dentist did place a couple of stitches. She is concerned because she can still see a hole in the base of the tongue. She is worried about possible infection or getting an infection. She is not having any difficulty breathing. She has some throbbing pain on the left side which is where her dental work and crown was placed today. No facial or neck swelling. No fever. Related Data Home Medications ?Medication ?Instructions ?Recorded ?Confirmed buprenorphine 12 mg-naloxone 3 mg 1 film sublingual DAILY 02/23/24 09/22/24 sublingual film (Suboxone) buprenorphine 8 mg-naloxone 2 mg 1 film sublingual DAILY 02/23/24 09/22/24 sublingual film (Suboxone) ibuprofen 600 mg tablet 600 mg PO Q6H PRN pain #10 tabs 02/26/24 09/22/24 gabapentin 800 mg tablet 800 mg PO TID 06/23/24 09/22/24 pregabalin 150 mg capsule 150 mg PO BID 06/23/24 09/22/24 albuterol sulfate 90 mcg/actuation 2 puff inhalation Q4H PRN #6.7 06/24/24 09/22/24 aerosol inhaler (Ventolin HFA) grams chlorhexidine gluconate 0.12 % 15 ml mucous membrane BID #120 mL 09/22/24 mouthwash Previous Rx's ?Medication ?Instructions ?Recorded ibuprofen 600 mg tablet 600 mg PO Q6H PRN pain #10 tabs 02/26/24 albuterol sulfate 90 mcg/actuation 2 puff inhalation Q4H PRN #6.7 06/24/24 aerosol inhaler (Ventolin HFA) grams chlorhexidine gluconate 0.12 % 15 ml mucous membrane BID #120 mL 09/22/24 mouthwash Allergies Allergy/AdvReac Type Severity Reaction Status Date / Time No Known Drug Allergies Allergy Unknown Verified 09/22/24 01:27 General JEROMY: 3 Exam Narrative Exam Narrative: Const: WDWN female in NAD. VS per triage. HEENT: NC/AT. Normal facial exam. There is no facial swelling or erythema. Dentition unremarkable with recent crown in place. Repaired laceration under the tongue on the left side. Towards the base there is a small opening. There is no significant swelling and no drainage. Neck: Supple. Trachea midline. No adenopathy. Lungs: Normal respiratory effort. Neuro: A+O x 3. Normal speech, mentation, gait. Cranial nerves II - XII grossly intact. No gross motor or sensory deficit. Medical Decision Making Patient presenting to ED with concern for continued pain and possible infection after sustaining laceration under her tongue during a dental procedure. There is a small hole at the base of the tongue on the left. Unclear whether a suture came out or not. There is no drainage or swelling. Face and neck unremarkable. Would not expect infection this early given the injury occurred less than 24 hours. Would not attempt reclosure as I feel the risk of infection would be higher. Recommend swish and spit after eating or drinking anything. Will place on chlorhexidine solution twice a day and refer back to surgeon for follow-up. Return precautions discussed. PFSH All Active Problems Positive urine drug screen (Acute) opiates 02/02/24 Encounter for wound re-check (Acute) Medical History ADHD Depression Anxiety Restless leg syndrome 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 Surgical History History of D&C 02/23/24 for retained placenta. Previous section (07/06/13) Family History Father Essential hypertension Hyperlipidemia Mother Fibromyalgia Social History Smoking/Tobacco Use Status: Current every day Tobacco Type: cigars Tobacco: How many years used: 10 Quit status: has quit before Smoking risk assessment performed?: Yes Alcohol Intake: never Drug use: Never Household members: other Details: children: Mk, Jeanmarie, Arcadio Housing: apartment Do you feel safe at home: Yes Do you feel safe in your relationship?: Yes Female Reproductive History Menstrual Age of Menarche: 13 Duration of menses: 3-5 days control method: none History History 7 Para 5 Hx # Term Pregnancies 3 Multiple births 0 Hx # Pregnancies 0 Ectopic pregnancies 0 AB induced Hx Number of Living Children AB spontaneous Past Pregnancies Del. Date GA/Weeks # Preg Succ Route Wgt Sex Labor Lgth Anesth esia Location Prov Complic Unknown Unknown 07/14/08 40 No EP o ther 07/06/13 No vaginal Male ANUSHA 12/26/14 No Female 9 hrs CNM 09/26/18 40 No vaginal 3005.049 g Male Jodi Garcia CNM 02/23/24 40 Yes vaginal 2211.263 g Female Mireille Lamar CNM Delivery Date: Last Updated by: Radha Lamar CNM SAB Delivery Date: Last Updated by: Radha Lamar CNM SAB Delivery Date: 07/14/08 Last Updated by: Radha Lamar CNM arrest of descent Delivery Date: 07/06/13 Last Updated by: Radha Lamar CNM , retained placenta - removed under anesthesia Delivery Date: 09/26/18 Last Updated by: Erika Santana Pecipitous delivery, Arrived in active labor, SROM clear fluid within 15 minutes of arrival and head seen on perineum. Controlled delivery with snug nuchal cord,. Delivery Date: 02/23/24 Last Updated by: Litzy Patel MD [facility] at [facility] Precipitous , retained placenta with D&C
== END 2024-09-22 01:48 | disposition home or self-care (01) ==
PROVIDERS: Emergency Provider Emergency Medicine; PCP Neuromusculoskeletal Medicine & OMM
DX: S01.512A Laceration without foreign body of oral cavity, initial encounter (principal); X58.XXXA Exposure to other specified factors, initial encounter
CPT/HCPCS: 99283

== ENCOUNTER 2025-05-20 18:18 | Emergency (ER) | payer MEDICAID, SELFPAY ==
--- NOTE | 2025-05-20 18:15 | RT.EKG_ITS ---
APPROVED REPORT Exam: Resting ECG Reason for Exam: Chest Pain Patient Location: E HR:108 bpm ECG Measurements Heart Rate 108 AXIS PA 122 P 82 QRSd 92 QRS 69 QT 295 T 56 QTc 394 Conclusion Sinus tachycardia...rate> 99 No STEMI
[2025-05-20 18:24] VITALS: BP 117/72; PULSE 102; RESP 30; TEMP 39.2; O2SAT 93
--- NOTE | 2025-05-20 18:30 | DI.RAD_ITS ---
Exam(s) XR CHEST 2V PA LATERAL EXAM: XR CHEST 2V PA LATERAL CLINICAL HISTORY: fever, cough. TECHNIQUE: 2D digital imaging was performed. COMPARISON: CR XR CHEST 2V PA LATERAL from 06/23/2024 FINDINGS: 2 views: Heart size is normal. The mediastinum is not widened. There are mild increased markings in the medial segment of the right middle lobe. Suspect mild infiltrate. The previously present infiltrate in the right lower lobe which was seen on x-ray of 06/23/2024 has resolved. There are no pleural effusions. IMPRESSION: Mild right middle lobe infiltrate.Previously present right lower lobe infiltrate has resolved (see chest x-ray 06/23/2024) Preliminary V rad report was reviewed Final report called by myself to ER physician 05/21/2025 at 3:20 p.m. DATA REPOSITORY: RADIATION DOSE DELIVERED:
[2025-05-20] MEDS: Normal Saline 1,000 ML 1000 ML IV (19:17)
[2025-05-20] MEDS: Dexamethasone 10 MG/ML VIAL IVP (19:18)
[2025-05-20] MEDS: ACETAMINOPHEN 1,000 MG/100 ML BAG 400 MG IVPB (19:20)
[2025-05-20] MEDS: Albuterol HFA 8 GM 60 PUFF INH IH (19:21)
[2025-05-20 19:22] LABS: Abs Immature Grans 0.03 10^3/uL (0.0-0.06); HCT 36.8 % (36.0-46.0); HGB 12.6 g/dL (11.2-15.7); Immature Grans % 0.3 %; MCH 29.6 pg (27.0-33.0); MCHC 34.2 % (32.0-36.0); MCV 86 fL (80-95); MPV 9.5 fL (8.0-11.0); Platelet Count 293 10^3/uL (130-400); RBC 4.26 10^6/uL (3.93-5.22); RDW 12.3 % (11.7-14.6); RDW-SD 39.0 fL; WBC 10.92 10^3/uL (4.4-10.8)
[2025-05-20 19:44] LABS: ALT 19 U/L (14-59); AST 11 U/L (15-37); Albumin 3.6 g/dL (3.4-5.0); Alkaline Phosphatase 65 U/L (46-116); Anion Gap 10.7 mmol/L (3-11); BUN 12 mg/dL (7-18); Bilirubin, Total 0.6 mg/dL (0.2-1.0); CO2 27.3 mmol/L (21.0-32.0); Calcium 9.0 mg/dL (8.5-10.1); Chloride 100 mmol/L (98-107); Glucose 106 mg/dL (74-106); Potassium 4.1 mmol/L (3.5-5.1); Sodium 138 mmol/L (136-145); Total Protein 7.5 g/dL (6.4-8.2)
[2025-05-20 19:59] LABS: HCG Qual (Serum) Negative
--- NOTE | 2025-05-20 20:08 | DI.VRAD_ITS ---
PROCEDURE INFORMATION: Exam: XR Chest Exam date and time: 05/20/2025 7:35 PM Age: 40 years old Clinical indication: Cough and fever; Additional info: Fever, cough TECHNIQUE: Imaging protocol: Radiologic exam of the chest. Views: 2 views. COMPARISON: CR XR CHEST 2V PA LATERAL 06/23/2024 8:26 AM FINDINGS: Lungs: Moderate hyperinflation which may reflect air trapping from an upper respiratory infection or reactive airway disease. There are some features of bronchial wall thickening suggesting a process such as bronchitis. No peripheral infiltrates. No edema. Pleural spaces: No pleural effusion. Heart/Mediastinum: Normal heart size. No mediastinal widening. Bones/joints: Unremarkable skeletal structures. No acute features. IMPRESSION: Hyperinflation and bronchial wall thickening suggesting bronchitis. No peripheral infiltrates or acute pleural change. Dictated and Authenticated by: Alexy Dukes MD. Orderin Negar Chavez MD
[2025-05-20 20:13] LABS: COVID-19 PCR Negative (Negative); RSV PCR Negative (Negative)
[2025-05-20] MEDS: Ketorolac 15 MG/ML VIAL IVP (20:53)
[2025-05-20] MEDS: Doxycycline Hyclate 100 MG, 2 CAPS/BTL PO (20:55)
[2025-05-20 20:59] VITALS: BP 104/60; PULSE 90; RESP 18; O2SAT 94
--- NOTE | 2025-05-22 09:17 | W.ED.GENAD ---
Discharge Plan Disposition Patient Disposition: Home Condition: Stable Discharge Details Clinical Impression: Bronchitis, Fever Primary Care Provider: Ashu [facility] ED Provider: Kathy Bills Home Meds and New Rx's Prescriptions: New prednisone 20 mg tablet 40 mg PO DAILY Qty: 10 0RF doxycycline hyclate 100 mg tablet 100 mg PO BID 7 Days Qty: 14 0RF Continued ibuprofen 600 mg tablet 600 mg PO Q6H PRN (Reason: pain) Qty: 10 0RF nicotine 14 mg/24 hr patch 24 hour 1 patch transdermal DAILY Rx Instructions: start after 21mg nicotine 21 mg/24 hr patch 24 hour 1 patch transdermal DAILY nicotine 7 mg/24 hr patch 24 hour 1 patch transdermal Q24H Rx Instructions: after 14mg vit 80-[id number]-dha 27mg iron- 800 mcg-250 mg capsule 1 cap PO DAILY buprenorphine-naloxone [Suboxone] 8-2 mg film 1 film sublingual DAILY Patient Comments: PLACE ONE FILM UNDER THE TONGUE EVERY MORNING gabapentin 800 mg tablet 800 mg PO TID Patient Comments: TAKE ONE TABLET BY MOUTH THREE TIMES A DAY pregabalin 150 mg capsule 150 mg PO BID Patient Comments: TAKE ONE CAPSULE BY MOUTH TWICE A DAY albuterol sulfate [Ventolin HFA] 90 mcg/actuation HFA aerosol inhaler 2 puff inhalation Q4H PRNQty: 6.7 0RF Discharge Instructions Instructions: Bronchitis, Adult ED Additional Instructions: Take Tylenol every 4-6 hours for fever control, do not exceed 3 g of Tylenol daily You may take Motrin every 6 hours for fever control, 400 mg with food Take the antibiotic as prescribed for 5 days Take the steroid for breathing issues for the next 4 days you received a dose in the emergency department tonight, you also received a dose of antibiotic Use the inhaler 2 puffs every 4 hours Should you develop new or worsening complaints return to the emergency department for reassessment Referrals: Ashu Hills [Primary Care Provider, Medicine] Discharge Data Discharge Date/Time-TO BE ENTERED AT DEPARTURE: 05/20/25 21:01 HPI General Date/Time Provider Initiated Documentation: 05/20/25 18:33. HPI Narrative: This 40-year-old female presents with chest pain and shortness of breath shaking chills. She states has been sick for the past 4 days. She has children at home who are reportedly sick but not with fever. She denies any IV drug use. She denies stiff neck does have a headache. Has diffuse muscle pain. Denies urinary symptoms. Denies rashes or lesions or tick bites. Related Data Home Medications Medication Instructions Recorded Confirmed buprenorphine 8 mg-naloxone 2 mg 1 film sublingual DAILY 02/23/24 05/20/25 sublingual film (Suboxone) ibuprofen 600 mg tablet 600 mg PO Q6H PRN pain #10 tabs 02/26/24 05/20/25 gabapentin 800 mg tablet 800 mg PO TID 06/23/24 05/20/25 pregabalin 150 mg capsule 150 mg PO BID 06/23/24 05/20/25 albuterol sulfate 90 mcg/actuation 2 puff inhalation Q4H PRN #6.7 06/24/24 05/20/25 aerosol inhaler (Ventolin HFA) grams nicotine 14 mg/24 hr daily 1 patch transdermal DAILY 11/21/24 05/20/25 transdermal patch nicotine 21 mg/24 hr daily 1 patch transdermal DAILY 11/21/24 05/20/25 transdermal patch nicotine 7 mg/24 hr daily 1 patch transdermal Q24H 11/21/24 05/20/25 transdermal patch 40-iron fum 27 mg 1 cap PO DAILY 11/21/24 05/20/25 iron-folic acid 800 mcg-dha 250 mg capsule doxycycline hyclate 100 mg tablet 100 mg PO BID 7 days #14 tabs 05/20/25 prednisone 20 mg tablet 40 mg (2 x 20 mg) PO DAILY #10 tabs 05/20/25 Previous Rx's Medication Instructions Recorded ibuprofen 600 mg tablet 600 mg PO Q6H PRN pain #10 tabs 02/26/24 albuterol sulfate 90 mcg/actuation 2 puff inhalation Q4H PRN #6.7 06/24/24 aerosol inhaler (Ventolin HFA) grams doxycycline hyclate 100 mg tablet 100 mg PO BID 7 days #14 tabs 05/20/25 prednisone 20 mg tablet 40 mg (2 x 20 mg) PO DAILY #10 tabs 05/20/25 Allergies Allergy/AdvReac Type Severity Reaction Status Date / Time No Known Drug Allergies Allergy Unknown Verified 05/20/25 18:28 General Stated Complaint: Chest Pain JEROMY: 3 Exam Narrative Exam Narrative: Alert uncomfortable appearing 40-year-old female no meningismus no rashes or lesions wheezes throughout lungs, inspiratory and expiratory, no significant respiratory distress, no abdominal tenderness no CVA tenderness, diaphoretic, oropharynx patent uvula midline no erythema TMs clear bilaterally Course Vital Signs Vital signs: Vital Signs Temperature 39.2 C H 05/20/25 18:24 Pulse 102 H 05/20/25 18:24 Respiratory Rate 30 H 05/20/25 18:24 Blood Pressure 117/72 05/20/25 18:24 Pulse Oximetry 93 05/20/25 18:24 Temperature 39.2 C H 05/20/25 18:24 Pulse 90 05/20/25 20:59 Respiratory Rate 18 05/20/25 20:59 Respiratory Effort Short of Breath 05/20/25 20:59 Blood Pressure 104/60 05/20/25 20:59 Blood Pressure Position Sitting 05/20/25 18:24 Pulse Oximetry 94 05/20/25 20:59 Oxygen Delivery Method Room Air 05/20/25 18:24 Oxygen Flow Rate 0 05/20/25 18:24 Lab/Test Results Lab/Test Results: Laboratory Tests Range/Units 05/20/25 05/20/25 19:09 19:25 WBC (4.4-10.8) 10^3/uL 10.92 H RBC (3.93-5.22) 10^6/uL 4.26 Hgb (11.2-15.7) g/dL 12.6 Hct (36.0-46.0) % 36.8 MCV (80-95) fL 86 MCH (27.0-33.0) pg 29.6 MCHC (32.0-36.0) % 34.2 RDW (11.7-14.6) % 12.3 Plt Count (130-400) 10^3/uL 293 MPV (8.0-11.0) fL 9.5 Immature Gran % % 0.3 Neutrophils % % 76.3 Lymphocytes % % 14.4 Monocytes % % 8.0 Eosinophils % % 0.8 Basophils % % 0.2 Nucleated RBC % (0.0-0.3) % 0.0 Absolute Neutrophils (1.2-6.7) 10^3/uL 8.33 H Absolute Lymphocytes (1.2-3.4) 10^3/uL 1.57 Absolute Monocytes (0.1-0.8) 10^3/uL 0.87 H Absolute Eosinophils (0.0-0.7) 10^3/uL 0.09 Absolute Basophils (0.0-0.2) 10^3/uL 0.02 Sodium (136-145) mmol/L 138 Potassium (3.5-5.1) mmol/L 4.1 Chloride (98-107) mmol/L 100 Carbon Dioxide (21.0-32.0) mmol/L 27.3 Anion Gap (3-11) mmol/L 10.7 BUN (7-18) mg/dL 12 Creatinine (0.55-1.02) mg/dL 0.6 Est GFR (CKD-EPI 2020) (mL/min/1.73m2) 117.75 Glucose (74-106) mg/dL 106 Calcium (8.5-10.1) mg/dL 9.0 Total Bilirubin (0.2-1.0) mg/dL 0.6 AST (15-37) U/L 11 L ALT (14-59) U/L 19 Alkaline Phosphatase (46-116) U/L 65 Total Protein (6.4-8.2) g/dL 7.5 Albumin (3.4-5.0) g/dL 3.6 Serum HCG, Qual Negative COVID-19 Source Nasopharynx SARS-CoV-2 (PCR) (Negative) Negative Influenza Type A (PCR) (Negative) Negative Influenza Type B (PCR) (Negative) Negative RSV (PCR) (Negative) Negative POC- Test(urine) Negative Medical Decision Making Results: Chest x-ray with increased bronchial markings per virtual radiology interpretation review mild leukocytosis remainder of labs are actually reassuring including lactate Assessment and plan:: Patient presenting with fever, chills, and respiratory symptoms. Patient smokes with no history of COPD or asthma, I will start her on antibiotics, doxycycline at this time. Also prescribed steroids and albuterol inhaler with spacer. I did recommend patient stay for completion of her IV fluids however she has declined. She is fully alert and oriented with her in the room and they are requesting discharge home as they have small children at home. Her repeat temperature was 101 degrees. She is able to tolerate p.o. including her first dose of antibiotic and steroid. She will need close outpatient recheck in 24 hours blood cultures pending. Given the threshold to return with new or worsening complaints recheck in 24 hours with PCP encouraged PFSH All Active Problems (Updated 05/20/25 @ 20:30 by EVE Arvizu) Fever (Acute) Bronchitis (Acute) Positive urine drug screen (Acute) opiates 02/02/24 Medical History Oral injury Episodic mood disorder RhD negative Refractory migraine without aura Psychoactive substance abuse Pediculosis capitis Pediatric pre- visit Panic disorder Pain in right lower leg Obsessive compulsive disorder Nicotine dependence Multigravida in third trimester Mental disorder, not otherwise specified Melanocytic nevus Mantoux: positive Low grade squamous intraepithelial lesion (LGSIL) on cervical Pap smear Low back pain Headache disorder Fibromyalgia Borderline personality disorder Backache Attention deficit hyperactivity disorder, combined type Amenorrhea Encounter for removal of sutures ADHD Depression Anxiety Restless leg syndrome 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 Previous section (07/06/13) 07/14/2008 Family History Father Essential hypertension Hyperlipidemia Mother Fibromyalgia Headache Sister Headache Seizure Sister Seizure Social History Smoking/Tobacco Use Status: Current every day Tobacco Type: cigars Tobacco: How many years used: 10 Quit status: has quit before Smoking risk assessment performed?: Yes Alcohol Intake: never Drug use: Never Household members: other Details: children: Mk, Jeanmarie, Arcadio Housing: apartment Do you feel safe at home: Yes Do you feel safe in your relationship?: Yes Female Reproductive History Menstrual Age of Menarche: 13 Duration of menses: 3-5 days control method: none History History 7 Para 5 Hx # Term Pregnancies 3 Multiple births 0 Hx # Pregnancies 0 Ectopic pregnancies 0 AB induced Hx Number of Living Children AB spontaneous Past Pregnancies Del. Date GA/Weeks # Preg Succ Route Wgt Sex Labor Lgth Anesthesia Location Prov Complic Unknown Unknown 07/14/08 40 No EP other 07/06/13 No vaginal Male CNM 12/26/14 No Female 9 hrs CNM 03/10/19 40 No vaginal 3005.049 g Male JodiGibbonsANUSHA 02/23/24 38 Yes vaginal 2211.263 g Female Radha Lamar CNM Delivery Date: Last Updated by: Radha Lamar CNM [facility] Delivery Date: Last Updated by: Radha Lamar CNM [facility] Delivery Date: 07/14/08 Last Updated by: Radha Lamar CNM arrest of descent Delivery Date: 07/06/13 Last Updated by: Radha Lamar CNM , retained placenta - removed under anesthesia Delivery Date: 09/26/18 Last Updated by: Erika Santana Pecipitous delivery, Arrived in active labor, SROM clear fluid within 15 minutes of arrival and head seen on perineum. Controlled delivery with snug nuchal cord,. Delivery Date: 02/23/24 Last Updated by: Litzy Patel MD [facility] at [facility] Precipitous , retained placenta with D&C
== END 2025-05-20 21:01 | disposition home or self-care (01) ==
PROVIDERS: Emergency Provider Physician Assistant; PCP Neuromusculoskeletal Medicine & OMM
DX: J40 Bronchitis, not specified as acute or chronic (principal); R50.9 Fever, unspecified
CPT/HCPCS: 80053; 81025; 87637; 93005; 96361; 96374; 96375; 99284; 71046; 84703; 85025; 93010; J0131; J1100; J1885